=== PATIENT | male | born 1950 | race Caucasian/White ===

== ENCOUNTER → 2019-04-22 09:04 | Outpatient (CLI) | payer MEDICARE, SELFPAY ==
[2019-04-22 10:17] LABS: Add Manual Diff / Slide Review NO; Basophils Absolute Auto 0 /uL (0-100); Basophils Percent Auto 0.5 % (0-2); Eosinophils Absolute Auto 100 /uL (0-450); Eosinophils Percent Auto 0.9 % (2-4); Hemoglobin 13.9 g/dL (13.5-17.5); Lymphocytes Absolute Auto 2100 /uL (1100-4500); Lymphocytes Percent Auto 27.9 % (25-40); Mean Corpuscular Hemoglobin 27.9 PG (26-34); Monocytes Absolute Auto 700 /uL (0-900); Monocytes Percent Auto 9.9 % (3-14); Neutrophils Absolute Auto 4500 /uL (1500-7000); Neutrophils Percent Auto 60.8 % (50-75); Platelet Count 316 X10^3/uL (150-400); White Blood Cell Count 7.4 X10^3/uL (4.5-11.0)
[2019-04-22 10:29] LABS: Prothrombin Time 11.1 SECONDS (10.1-12.7)
[2019-04-22 10:35] LABS: Alanine Aminotransferase 14 IU/L (<50); Albumin 4.8 g/dL (3.5-5.0); Albumin Globulin Ratio 1.7 (1.0-2.8); Alkaline Phosphatase 55 U/L (38-126); Aspartate Aminotransferase 24 IU/L (17-59); BUN Creatinine Ratio 26.3 (6-22); Bilirubin Total 0.4 mg/dL (0.2-1.3); Blood Urea Nitrogen 21 mg/dL (9-20); Calcium 9.8 mg/dL (8.4-10.2); Carbon Dioxide 28 mmol/L (22-32); Chloride 101 mmol/L (98-107); Estimated Glomerular Filt Rate > 60.0 mL/min (>60); Globulin 2.9 g/dL (1.7-4.1); Glucose 94 mg/dL (80-110); HEMOLYSIS < 15 (0-50); Potassium 4.5 mmol/L (3.4-5.1); Sodium 140 mmol/L (137-145); Total Protein 7.7 g/dL (6.3-8.2)
[2019-04-25 17:00] LABS: Alpha Fetoprotein 4.6 ng/mL (< 6.1)
== END ==
PROVIDERS: PCP Family Medicine; Visit Provider Nurse Practitioner Family
DX: B18.2 Chronic viral hepatitis C (principal)
CPT/HCPCS: 36415; 80053; 82105; 85025; 85610

== ENCOUNTER → 2020-01-22 08:52 | Outpatient (CLI) | payer MEDICARE, SELFPAY ==
[2020-01-22 10:45] LABS: Hemoglobin A1C% w Est Avg Glu 5.5 % (4.0-6.0)
[2020-01-22 11:32] LABS: Alanine Aminotransferase 15 IU/L (<50); Albumin 4.2 g/dL (3.5-5.0); Albumin Globulin Ratio 1.4 (1.0-2.8); Alkaline Phosphatase 53 U/L (38-126); Aspartate Aminotransferase 25 IU/L (17-59); BUN Creatinine Ratio 16.3 (6-22); Bilirubin Total 0.2 mg/dL (0.2-1.3); Blood Urea Nitrogen 13 mg/dL (9-20); Calcium 9.4 mg/dL (8.4-10.2); Carbon Dioxide 28 mmol/L (22-32); Chloride 102 mmol/L (98-107); Cholesterol 218 mg/dL (140-199); Estimated Glomerular Filt Rate > 60.0 mL/min (>60); Glucose 89 mg/dL (80-110); HDL Cholesterol 80 mg/dL (40-60); HEMOLYSIS < 15 (0-50); LDL Cholesterol Calculated 100 mg/dL (<100); Potassium 4.6 mmol/L (3.4-5.1); Sodium 136 mmol/L (137-145); Total Protein 7.2 g/dL (6.3-8.2); Triglycerides 192 mg/dL (35-150)
[2020-01-22 11:42] LABS: Creatinine Urine Random 29.5 mg/dL
[2020-01-22 11:50] LABS: Microalbumin Urine Random < 0.6 mg/dL (0-1.6)
== END ==
PROVIDERS: PCP Family Medicine; Referring Provider Family Medicine; Visit Provider Family Medicine
DX: I10 Essential (primary) hypertension (principal)
CPT/HCPCS: 36415; 80053; 80061; 82043; 82570; 83036

== ENCOUNTER → 2020-02-11 09:54 | Outpatient (CLI) | payer MEDICARE, SELFPAY ==
--- NOTE | 2020-02-11 09:56 | DI.MRI.S_ITS ---
PROCEDURE: MR HEAD/BRAIN WO CON INDICATIONS: Short term memory loss TECHNIQUE: Non-contrast axial T1 spin echo, axial T2 fast spin echo, sagittal and axial FLAIR, coronal T2 fast spin echo, axial gradient echo, axial diffusion and ADC through the brain. COMPARISON: None. FINDINGS: Image quality: Excellent. CSF spaces: Ventricles appear symmetric in size and shape. Basal cisterns are patent. No extra-axial fluid collections. Brain: No intracranial bleeds or mass effects. There is cerebral volume loss for age, with no definite regional or lobar predilection to suggest a specific neuro degenerative diagnosis. There is advanced periventricular and deep white matter chronic small vessel ischemic change. Brainstem appears normal. Diffusion-weighted images show no acute ischemic insults. No chronic ischemic insults. Normal intravascular flow voids are present. Skull and face: Calvarial bone marrow is normal in signal. Orbits are normal. Sinuses: Sinuses and mastoids are clear. IMPRESSION: Global cerebral volume loss without definite regional or lobar predilection to suggest a specific neuro-degenerative diagnosis. Advanced chronic microvascular ischemic change. No acute intracranial abnormality. Dictated by: Kyle Newby M.D. on 02/11/2020 at 11:33 Approved by: Kyle Newby M.D. on 02/11/2020 at 11:34
== END ==
PROVIDERS: PCP Family Medicine; Referring Provider Family Medicine; Visit Provider Family Medicine
DX: I67.82 Cerebral ischemia (principal); R41.3 Other amnesia
CPT/HCPCS: 70551

== ENCOUNTER → 2020-03-04 08:14 | Outpatient (CLI) | payer MEDICARE, SELFPAY ==
--- NOTE | 2020-03-04 | DI.US.S_ITS ---
PROCEDURE: US ABDOMEN LIMITED INDICATIONS: CIRRHOSIS-HCC SURVEILLANCE TECHNIQUE: Real-time scanning was performed of the abdominal and retroperitoneal organs, with image documentation. COMPARISON: [facility], US, ABDOMEN COMPLETE, 02/17/2016, 9:41. FINDINGS: Liver: Liver is normal in size and homogeneous in echotexture. There is a 2.2 x 1.5 x 1.8 cm echogenic in the right hepatic lobe this measured 2.3 x 2.0 x 1.8 cm on the comparison ultrasound dated February 17, 2016. Gallbladder: The gallbladder wall measures 1.9 mm in diameter. 3 and 4 cm polyps are noted within the fundus. Biliary ducts: Intrahepatic bile ducts are non-dilated. Extrahepatic bile duct caliber measures 3.7 mm. Normal is 6-7 mm or less in diameter, or 10 mm or less post-cholecystectomy. Pancreas: There is fatty atrophy of the pancreas. Kidneys: There is an incidentally noted right lower pole renal cyst which measures 1.7 cm in diameter. IMPRESSION: 1. No increased hepatic echogenicity to suggest cirrhotic transformation or steatosis. 2. Stable hepatic hemangioma. 3. Gallbladder polyps measuring 3 and 4 mm in diameter. Dictated by: Rosemarie Webb M.D. on 03/04/2020 at 10:37 Approved by: Rosemarie Webb M.D. on 03/04/2020 at 10:43
[2020-03-04 09:36] LABS: Add Manual Diff / Slide Review NO; Basophils Absolute Auto 0 /uL (0-100); Basophils Percent Auto 0.4 % (0-2); Eosinophils Absolute Auto 200 /uL (0-450); Eosinophils Percent Auto 2.7 % (2-4); Hemoglobin 13.4 g/dL (13.5-17.5); Lymphocytes Absolute Auto 2700 /uL (1100-4500); Lymphocytes Percent Auto 32.8 % (25-40); Mean Corpuscular HGB Conc 32.7 % (30-36); Mean Corpuscular Hemoglobin 29.2 PG (26-34); Mean Corpuscular Volume 89.5 fL (80-100); Monocytes Absolute Auto 900 /uL (0-900); Monocytes Percent Auto 11.1 % (3-14); Neutrophils Absolute Auto 4400 /uL (1500-7000); Platelet Count 289 X10^3/uL (150-400); Red Blood Cell Count 4.58 X10^6/uL (4.5-5.9); Red Cell Distribution Width 14.1 % (11.6-14.8); White Blood Cell Count 8.3 X10^3/uL (4.5-11.0)
[2020-03-04 09:38] LABS: Prothrombin Time 11.2 SECONDS (10.1-12.7)
[2020-03-04 10:06] LABS: Alanine Aminotransferase 16 IU/L (<50); Albumin 4.1 g/dL (3.5-5.0); Albumin Globulin Ratio 1.4 (1.0-2.8); Alkaline Phosphatase 51 U/L (38-126); Aspartate Aminotransferase 29 IU/L (17-59); BUN Creatinine Ratio 13.5 (6-22); Bilirubin Total 0.5 mg/dL (0.2-1.3); Blood Urea Nitrogen 12 mg/dL (9-20); Calcium 9.6 mg/dL (8.4-10.2); Carbon Dioxide 30 mmol/L (22-32); Chloride 104 mmol/L (98-107); Estimated Glomerular Filt Rate > 60.0 mL/min (>60); Glucose 90 mg/dL (80-110); HEMOLYSIS < 15 (0-50); Potassium 4.5 mmol/L (3.4-5.1); Sodium 137 mmol/L (137-145); Total Protein 7.1 g/dL (6.3-8.2)
[2020-03-05 08:13] LABS: Alpha Fetoprotein 2.8 ng/mL (0.0-8.3)
== END ==
PROVIDERS: PCP Family Medicine; Referring Provider Family Medicine; Visit Provider Nurse Practitioner Family
DX: K74.60 Unspecified cirrhosis of liver (principal); B18.2 Chronic viral hepatitis C; K82.4 Cholesterolosis of gallbladder
CPT/HCPCS: 36415; 76705; 80053; 82105; 85025; 85610

== ENCOUNTER → 2020-12-24 11:03 | Outpatient (CLI) | payer MEDICARE, SELFPAY ==
--- NOTE | 2020-12-24 | DI.US.S_ITS ---
PROCEDURE: US ABDOMEN LIMITED INDICATIONS: CIRRHOSIS - RULE OUT HEPATIC CELLULAR CARCINOMA TECHNIQUE: Real-time focused scanning was performed of the abdomen, with image documentation. COMPARISON: [facility], US, ABDOMEN COMPLETE, 02/17/2016, 9:41. [facility], US, ABDOMEN COMPLETE, 09/13/2007, 9:39. [facility], [place], US ABDOMEN LIMITED, 03/04/2020, 8:36. FINDINGS: The liver demonstrates normal size. The liver demonstrates generalized mildly increased echogenicity. This decreases ultrasound sensitivity for detection of hepatic masses. However, within the right liver, there is a homogeneous hyperechoic focus with posterior enhancement that measures 2.1 x 1.7 x 1.4 cm, which previously measured 2.2 x 1.8 x 1.5 cm. No findings of gallstones or sludge are seen. The gallbladder wall is not thickened, measuring 3 mm or less. Multiple apparent gallbladder wall polyps are again seen, with the largest measuring up to 3.5 mm. No specific pericholecystic fluid is seen. The sonographic Kitchen sign is negative. There is no biliary dilatation, the common bile duct measures 5 mm. The pancreas is not well seen. Incidental note is made of a 2.1 cm simple cyst at the inferior aspect of the right kidney, which previously measured up to 1.7 cm. The spleen is within normal limits for size measuring 9.2 cm. IMPRESSION: An apparent liver hemangioma can be seen, which is not enlarged compared to the prior examination. No additional liver masses are seen by ultrasound. If it would be helpful for clinical management decision making, please consider a dedicated liver MRI (without and with contrast) for further evaluation (assuming that there is no contraindication). Dictated by: Som Meyers M.D. on 12/24/2020 at 11:25 Approved by: Som Meyers M.D. on 12/24/2020 at 11:29
[2020-12-24 12:53] LABS: Add Manual Diff / Slide Review NO; Basophils Absolute Auto 100 /uL (0-100); Basophils Percent Auto 0.7 % (0-2); Eosinophils Absolute Auto 100 /uL (0-450); Eosinophils Percent Auto 1.3 % (2-4); Hematocrit 44.7 % (41-53); Hemoglobin 14.4 g/dL (13.5-17.5); Lymphocytes Absolute Auto 2300 /uL (1100-4500); Lymphocytes Percent Auto 27.6 % (25-40); Mean Corpuscular HGB Conc 32.3 % (30-36); Mean Corpuscular Hemoglobin 27.2 PG (26-34); Mean Corpuscular Volume 84.2 fL (80-100); Monocytes Absolute Auto 700 /uL (0-900); Monocytes Percent Auto 8.7 % (3-14); Neutrophils Absolute Auto 5200 /uL (1500-7000); Neutrophils Percent Auto 61.7 % (50-75); Platelet Count 278 X10^3/uL (150-400); Prothrombin Time 11.4 SECONDS (10.1-12.7); Red Blood Cell Count 5.31 X10^6/uL (4.5-5.9); Red Cell Distribution Width 15.3 % (11.6-14.8); White Blood Cell Count 8.5 X10^3/uL (4.5-11.0)
[2020-12-24 13:15] LABS: Alanine Aminotransferase 17 IU/L (<50); Albumin 4.8 g/dL (3.5-5.0); Albumin Globulin Ratio 1.6 (1.0-2.8); Alkaline Phosphatase 50 U/L (38-126); Aspartate Aminotransferase 27 IU/L (17-59); BUN Creatinine Ratio 22.5 (6-22); Bilirubin Total 0.4 mg/dL (0.2-1.3); Blood Urea Nitrogen 18 mg/dL (9-20); Calcium 9.7 mg/dL (8.4-10.2); Carbon Dioxide 27 mmol/L (22-32); Chloride 105 mmol/L (98-107); Estimated Glomerular Filt Rate > 60.0 mL/min (>60); Glucose 108 mg/dL (80-110); HEMOLYSIS < 15 (0-50); Potassium 4.3 mmol/L (3.4-5.1); Sodium 140 mmol/L (137-145); Total Protein 7.8 g/dL (6.3-8.2)
[2020-12-25 03:36] LABS: Alpha Fetoprotein 3.7 ng/mL (0.0-8.3)
== END ==
PROVIDERS: PCP Family Medicine; Referring Provider Nurse Practitioner Family; Visit Provider Nurse Practitioner Family
DX: B18.2 Chronic viral hepatitis C (principal); K74.60 Unspecified cirrhosis of liver; N28.1 Cyst of kidney, acquired
CPT/HCPCS: 36415; 76705; 80053; 82105; 85025; 85610

== ENCOUNTER → 2021-02-01 09:36 | Outpatient (CLI) | payer MEDICARE, SELFPAY ==
[2021-02-01 12:39] LABS: COVID19 -Nasal RAPID Negative (Negative)
== END ==
PROVIDERS: PCP Family Medicine; Visit Provider Physician Assistant
DX: Z20.822 Contact with and (suspected) exposure to COVID-19 (principal); J02.9 Acute pharyngitis, unspecified; R05.9 Cough, unspecified
CPT/HCPCS: 87635

== ENCOUNTER → 2021-08-18 09:03 | Outpatient (CLI) | payer MEDICARE, SELFPAY ==
--- NOTE | 2021-08-18 | DI.US.S_ITS ---
PROCEDURE: US ABDOMEN LIMITED INDICATIONS: Liver cell carcinoma TECHNIQUE: Real-time focused scanning was performed of the abdomen, with image documentation. COMPARISON: [facility], [place], US ABDOMEN LIMITED, 03/04/2020, 8:36. [facility], [place], US ABDOMEN LIMITED, 12/24/2020, 11:28. FINDINGS: The liver demonstrates normal size. The liver demonstrates generalized mildly increased echogenicity. This decreases ultrasound sensitivity for detection of hepatic masses. Within the right lobe of the liver, there are 2 hyperechoic foci seen, which measure up to 8 mm and up to 21 mm. No shadowing can be seen. No abnormal vascularity. No findings of gallstones or sludge are seen. The gallbladder wall is not thickened, measuring 3 mm or less. Multiple gallbladder wall polyps can be seen, with the largest measuring 5-6 mm. No specific pericholecystic fluid is seen. The sonographic Kitchen sign is negative. There is no biliary dilatation, the common bile duct measures 4 mm. No significant pancreatic abnormality is seen on these images. A right kidney anechoic cyst is again seen that measures up to 2.6 cm. IMPRESSION: No suspicious liver lesions are seen. Two hyperechoic foci can be seen within the liver, which are attributed to hemangiomas. Incidental note is made of: Multiple gallbladder wall polyps Right renal cyst Dictated by: Som Meyers M.D. on 08/18/2021 at 11:52 Approved by: Som Meyers M.D. on 08/18/2021 at 11:55
[2021-08-18 10:28] LABS: Prothrombin Time 11.8 SECONDS (10.1-12.7)
[2021-08-18 10:32] LABS: Alanine Aminotransferase 15 IU/L (<50); Albumin 4.4 g/dL (3.5-5.0); Albumin Globulin Ratio 1.5 (1.0-2.8); Alkaline Phosphatase 52 U/L (38-126); Aspartate Aminotransferase 22 IU/L (17-59); BUN Creatinine Ratio 18.8 (6-22); Bilirubin Total 0.4 mg/dL (0.2-1.3); Blood Urea Nitrogen 16 mg/dL (9-20); Calcium 9.3 mg/dL (8.4-10.2); Carbon Dioxide 29 mmol/L (22-32); Chloride 105 mmol/L (98-107); Estimated Glomerular Filt Rate > 60 mL/min (>60); Glucose 99 mg/dL (80-110); HEMOLYSIS < 15 (0-50); Potassium 4.4 mmol/L (3.4-5.1); Sodium 142 mmol/L (137-145); Total Protein 7.4 g/dL (6.3-8.2)
[2021-08-18 10:36] LABS: Add Manual Diff / Slide Review NO; Basophils Absolute Auto 0 /uL (0-100); Basophils Percent Auto 0.5 % (0-2); Eosinophils Absolute Auto 100 /uL (0-450); Eosinophils Percent Auto 0.8 % (2-4); Hemoglobin 13.7 g/dL (13.5-17.5); Lymphocytes Absolute Auto 2100 /uL (1100-4500); Lymphocytes Percent Auto 24.5 % (25-40); Mean Corpuscular HGB Conc 32.6 % (30-36); Mean Corpuscular Hemoglobin 27.4 PG (26-34); Mean Corpuscular Volume 84.1 fL (80-100); Monocytes Absolute Auto 700 /uL (0-900); Monocytes Percent Auto 8.3 % (3-14); Neutrophils Absolute Auto 5600 /uL (1500-7000); Neutrophils Percent Auto 65.9 % (50-75); Platelet Count 262 X10^3/uL (150-400); Red Cell Distribution Width 14.9 % (11.6-14.8); White Blood Cell Count 8.5 X10^3/uL (4.5-11.0)
[2021-08-19 05:33] LABS: Alpha Fetoprotein 3.7 ng/mL (0.0-8.4)
== END ==
PROVIDERS: PCP Family Medicine; Referring Provider Nurse Practitioner Family; Visit Provider Nurse Practitioner Family
DX: C22.0 Liver cell carcinoma (principal); B18.2 Chronic viral hepatitis C; K82.4 Cholesterolosis of gallbladder; N28.1 Cyst of kidney, acquired
CPT/HCPCS: 36415; 76705; 80053; 82105; 85025; 85610

== ENCOUNTER → 2022-05-04 11:25 | Outpatient (CLI) | payer MEDICARE, SELFPAY ==
--- NOTE | 2022-05-04 11:30 | DI.US.S_ITS ---
PROCEDURE: US ABDOMEN LIMITED INDICATIONS: LIVER FIBROSIS/CIRRHOSIS/HEPATOCELLULAR CARCINOMA SCREENING TECHNIQUE: Real-time focused scanning was performed of the abdomen, with image documentation. COMPARISON: [facility], , US ABDOMEN LIMITED, 12/24/2020, 11:28. [facility], , US ABDOMEN LIMITED, 03/04/2020, 8:36. [facility], , US ABDOMEN LIMITED, 08/18/2021, 10:28. FINDINGS: The liver demonstrates normal size and overall normal echotexture. The previously seen hyperechoic focus that measured 8 mm is not seen on the current study. There is now seen a hyperechoic nonvascular homogeneous focus within the right posterior lobe of the liver measuring 12 x 8 x 2 cm, which previously measured 15 x 21 x 19 mm. The main portal vein demonstrates normal size and demonstrates normal appearing, hepatopetal flow. No varices can be seen at the liver hilum. No findings of gallstones or sludge are seen. The gallbladder wall is not thickened, measuring 3 mm or less. Multiple apparent gallbladder wall polyps are again seen. No specific pericholecystic fluid is seen. The sonographic Kitchen sign is negative. There is no biliary dilatation, the common bile duct measures 5 mm. The pancreas is not well seen. The spleen measures within normal limits at 9.5 cm. No splenic varices are seen. Within the right kidney, there is a 2.3 cm cortical cyst that is anechoic that previously measured up to 2.6 cm. IMPRESSION: Likely liver hemangioma again seen, measuring up to 2 cm. The previously seen 8 mm apparent liver hemangioma is not seen on the current study. Additional findings: Apparent gallbladder wall polyps Right renal cyst Dictated by: Som Meyers M.D. on 05/04/2022 at 12:36 Approved by: Som Meyers M.D. on 05/04/2022 at 12:38
[2022-05-04 13:39] LABS: Add Manual Diff / Slide Review NO; Basophils Absolute Auto 0 /uL (0-100); Basophils Percent Auto 0.4 % (0-2); Eosinophils Absolute Auto 100 /uL (0-450); Eosinophils Percent Auto 0.6 % (2-4); Hematocrit 43.2 % (41-53); Hemoglobin 13.9 g/dL (13.5-17.5); Lymphocytes Absolute Auto 2600 /uL (1100-4500); Lymphocytes Percent Auto 31.5 % (25-40); Mean Corpuscular HGB Conc 32.1 % (30-36); Mean Corpuscular Hemoglobin 27.1 PG (26-34); Mean Corpuscular Volume 84.5 fL (80-100); Monocytes Absolute Auto 700 /uL (0-900); Neutrophils Absolute Auto 4800 /uL (1500-7000); Neutrophils Percent Auto 58.5 % (50-75); Platelet Count 322 X10^3/uL (150-400); Red Blood Cell Count 5.11 X10^6/uL (4.5-5.9); Red Cell Distribution Width 15.1 % (11.6-14.8); White Blood Cell Count 8.2 X10^3/uL (4.5-11.0)
[2022-05-04 13:50] LABS: INR 1.1 (0.9-1.3); Prothrombin Time 12.4 SECONDS (10.1-12.7)
[2022-05-04 14:03] LABS: Alanine Aminotransferase 22 IU/L (<50); Alkaline Phosphatase 52 U/L (38-126); Aspartate Aminotransferase 30 IU/L (17-59); BUN Creatinine Ratio 21.7 (6-22); Bilirubin Total 0.7 mg/dL (0.2-1.3); Blood Urea Nitrogen 18 mg/dL (9-20); Calcium 9.5 mg/dL (8.4-10.2); Carbon Dioxide 28 mmol/L (22-32); Chloride 99 mmol/L (98-107); Estimated Glomerular Filt Rate > 60 mL/min (>60); Glucose 85 mg/dL (80-110); HEMOLYSIS < 15 (0-50); Potassium 4.5 mmol/L (3.4-5.1); Sodium 137 mmol/L (137-145); Total Protein 7.4 g/dL (6.3-8.2)
[2022-05-04 15:10] LABS: Folate 13.3 ng/mL (2.76-20.0); Vitamin B12 718 pg/mL (239-931)
[2022-05-06 16:39] LABS: Albumin 4.6 g/dL (3.5-5.0); Albumin Globulin Ratio 1.6 (1.0-2.8); Globulin 2.8 g/dL (1.7-4.1)
[2022-05-23 13:43] LABS: 1,25-Dihydroxy, Vitamin D-2 <10 pg/mL (.)
== END ==
PROVIDERS: PCP Family Medicine; Referring Provider Nurse Practitioner Family; Visit Provider Nurse Practitioner Family
DX: B18.2 Chronic viral hepatitis C (principal); K74.00 Hepatic fibrosis, unspecified; Z12.89 Encounter for screening for malignant neoplasm of other sites; N28.1 Cyst of kidney, acquired; E55.9 Vitamin D deficiency, unspecified; E53.8 Deficiency of other specified B group vitamins
CPT/HCPCS: 36415; 76705; 80053; 82105; 82607; 82652; 82746; 85025; 85610

== ENCOUNTER → 2022-05-31 07:23 | Outpatient (CLI) | payer MEDICARE, SELFPAY ==
[2022-05-31 09:22] LABS: Cholesterol 151 mg/dL (140-199); HDL Cholesterol 57 mg/dL (40-60); LDL Cholesterol Calculated 77 mg/dL (<100); Triglycerides 84 mg/dL (35-150)
[2022-05-31 09:53] LABS: Prostate Specific Antigen Scrn 0.864 ng/mL (0.1-4.0)
== END ==
PROVIDERS: PCP Family Medicine; Referring Provider Family Medicine; Visit Provider Family Medicine
DX: E78.2 Mixed hyperlipidemia (principal); Z12.5 Encounter for screening for malignant neoplasm of prostate; R35.0 Frequency of micturition
CPT/HCPCS: 36415; 80061; G0103

== ENCOUNTER 2022-10-27 16:08 | Observation (INO) | payer MEDICARE, SELFPAY ==
[2022-10-27] VITALS (19 sets, daily range): BP systolic 123–192; BP diastolic 74–132; PULSE 62–81; RESP 12–32; TEMP 36.2–36.6; O2SAT 97–100; BMI 22.9
--- NOTE | 2022-10-27 16:24 | DI.RAD.S_ITS ---
PROCEDURE: XR CHEST 1V INDICATIONS: chest pain TECHNIQUE: One view of the chest was acquired. COMPARISON: None. FINDINGS: Surgical changes and devices: None. Lungs and pleura: Nodular densities in the lower lung zones are most likely nipple shadows. Lungs are clear. No pleural effusions or pneumothorax. Mediastinum: Mediastinal contours appear normal. Heart size is normal. Bones and chest wall: No suspicious bony lesions. Overlying soft tissues appear unremarkable. IMPRESSION: No acute cardiopulmonary disease. Dictated by: Zaida Roth M.D. on 10/27/2022 at 17:25 Approved by: Zaida Roth M.D. on 10/27/2022 at 17:27
[2022-10-27 16:49] LABS: Add Manual Diff / Slide Review NO; Basophils Absolute Auto 100 /uL (0-100); Basophils Percent Auto 0.8 % (0-2); Eosinophils Absolute Auto 200 /uL (0-450); Eosinophils Percent Auto 2.4 % (2-4); Hematocrit 42.2 % (41-53); Lymphocytes Absolute Auto 3100 /uL (1100-4500); Mean Corpuscular HGB Conc 33.2 % (30-36); Mean Corpuscular Hemoglobin 27.6 PG (26-34); Mean Corpuscular Volume 83.2 fL (80-100); Monocytes Absolute Auto 900 /uL (0-900); Neutrophils Absolute Auto 5500 /uL (1500-7000); Neutrophils Percent Auto 55.8 % (50-75); Platelet Count 272 X10^3/uL (150-400); Red Blood Cell Count 5.07 X10^6/uL (4.5-5.9); Red Cell Distribution Width 14.5 % (11.6-14.8); White Blood Cell Count 9.8 X10^3/uL (4.5-11.0)
[2022-10-27 16:55] LABS: Prothrombin Time 11.5 SECONDS (10.1-12.7)
[2022-10-27 16:58] LABS: PTT Partial Thromboplastin Tim 32 SECONDS (26-36)
[2022-10-27 17:00] LABS: Alanine Aminotransferase 22 IU/L (<50); Albumin 4.6 g/dL (3.5-5.0); Albumin Globulin Ratio 1.3 (1.0-2.8); Alkaline Phosphatase 58 U/L (38-126); Aspartate Aminotransferase 27 IU/L (17-59); BUN Creatinine Ratio 24.1 (6-22); Bilirubin Total 0.5 mg/dL (0.2-1.3); Blood Urea Nitrogen 19 mg/dL (9-20); Calcium 9.4 mg/dL (8.4-10.2); Carbon Dioxide 28 mmol/L (22-32); Chloride 103 mmol/L (98-107); Creatine Kinase 167 U/L (55-170); Estimated Glomerular Filt Rate > 60 mL/min (>60); Globulin 3.5 g/dL (1.7-4.1); Glucose 92 mg/dL (80-110); HEMOLYSIS 23 (0-50); Lipase 302 U/L (23-300); Magnesium 1.9 mg/dL (1.6-2.3); Potassium 4.2 mmol/L (3.4-5.1); Sodium 138 mmol/L (137-145); Total Protein 8.1 g/dL (6.3-8.2)
[2022-10-27 17:11] LABS: Troponin I < 0.012 ng/mL (0.01-0.034)
--- NOTE | 2022-10-27 19:27 | ED.CHESTPAIN ---
HPI - Chest Pain General Chief Complaint: Chest Pain Stated Complaint: chest pain, now resolved Time Seen by Provider: 10/27/22 18:20 Source: patient Mode of arrival: Ambulatory Limitations: no limitations History of Present Illness HPI narrative: Patient brought here by daughter, she is internal medicine physician, for episode 3:00 a.m. this afternoon for exertional dyspnea and chest pain. Lasted about 30 minutes. This has resolved. This occurred while he was [place] No near drowning. Patient has not had any recent chest pain or dyspnea. There is family history of coronary disease including his father. Patient has not had a stress test in many years over 10 years. Patient does have history of hypertension hyperlipidemia. Patient denies any chest pain at this time. Family did give him aspirin prior to arrival. Patient has known left bundle-branch block according to his daughter Related Data Home Medications Medication Instructions Recorded Confirmed aspirin 81 mg tablet,delayed 81 mg PO DAILY 01/28/21 10/27/22 release (Adult Aspirin Regimen) memantine 5 mg tablet 5 mg PO QPM 01/28/21 10/27/22 Previous Rx's Medication Instructions Recorded atorvastatin 20 mg tablet See Rx Instructions .Route 05/10/22 .COMPLEX #90 tabs lisinopril 10 See Rx Instructions .Route 05/10/22 mg-hydrochlorothiazide 12.5 mg .COMPLEX #90 tabs tablet Allergies Allergy/AdvReac Type Severity Reaction Status Date / Time codeine Allergy Unknown Verified 10/27/22 16:24 Review of Systems Review of Systems Narrative: GENERAL: negative chills, fatigue, malaise, fever, sweats. HEENT: negative sinus pain, ear pain, sore throat RESPIRATORY: Positive dyspnea, negative cough CARDIOVASCULAR: Positive chest pain, negative palpitations GASTROINTESTINAL: negative nausea, vomiting, abdominal pain : negative dysuria, frequency, hematuria MUSCULOSKELETAL: negative muscle or bony pain SKIN: negative rash, skin lesions NEUROLOGIC: negative weakness, numbness ROS Unobtainable: All systems reviewed & are unremarkable except as noted in HPI and below Patient History Medical History Cerebral microvascular disease Colon polyps (~2014) Headache (~2019) Hearing loss Hepatitis C (~1970) Hyperlipidemia Rib fractures Short-term memory loss Skin rash Surgical History Anesthesia History of bilateral knee arthroplasty History of colon surgery (~1961) History of knee replacement (~2005) Family History Father Leukemia History of heart disease Hypertension Mother Hypertension Stroke Dementia Brother Smoker Embolism Brother Cancer Brother Accident Grandmother Cancer Grandfather No problems noted. Grandmother Tuberculosis Social History household members: spouse Smoking Status: Never smoker Smoking Status: Never smoker Substance Use Type: does not use Exam Narrative Exam Narrative: GENERAL: in no distress, not toxic not dyspneic HEAD: Normocephalic. EYES: Pupils equal round ENT: Mucous membranes moist. NECK: Trachea midline. CARDIOVASCULAR: Regular rate and rhythm without murmurs RESPIRATORY: Clear to auscultation. Breath sounds equal bilaterally. No wheezes, rales, or rhonchi. GASTROINTESTINAL: Abdomen soft, non-tender EXTREMITIES: No gross deformities. BACK: No flank tenderness. NEURO: AOx4. SKIN: Warm and dry PSYCH: Not anxious, is cooperative Initial Vital Signs Initial Vital Signs: Vital Signs Temperature 97.8 F 10/27/22 16:18 Pulse Rate 79 10/27/22 16:18 Respiratory Rate 18 10/27/22 16:18 Blood Pressure 179/93 H 10/27/22 16:18 Pulse Oximetry 98 10/27/22 16:18 Oxygen Delivery Method Room Air 10/27/22 16:18 Course Orders Ordered: ED Orders 10/27/22 19:49 Lipid Panel Urgent NT-proBNP (BNP-Adult 18+) Urgent Troponin & CK Cardiac Panel Stat 10/27/22 21:31 Exercise treadmill NON NUC Urgent 10/27/22 21:32 EC echo doppler complete Urgent Education, smoking cessation ONGOING 10/27/22 21:35 Consult to Dietitian, Adult Routine 10/27/22 21:36 Consult to Discharge Planning Routine Consult to Occupational Therapy Evaluate & Treat Consult to Physical Therapy Evaluate & Treat 10/28/22 05:00 Troponin I Routine Acetaminophen (Acetaminophen 325 Mg Tablet) 650 mg PO Q6H PRN PRN Reason: Fever/Mild Pain (1-3) Aspirin (Aspirin Ec 325 Mg Tablet) 325 mg PO DAILY [facility] Atorvastatin Calcium (Atorvastatin 20 Mg Tablet) 20 mg PO BEDTIME [facility] Enoxaparin Sodium (Enoxaparin 40 Mg/0.4 Ml Syringe) 40 mg SUBCUT DAILY [facility] Lisinopril (Lisinopril 10 Mg Tablet) 10 mg PO DAILY [facility] Memantine (Memantine Hcl 5 Mg Tablet) 5 mg PO QPM [facility] Morphine Sulfate (Morphine 2 Mg/Ml Inj) 2 mg IV Q5MIN PRN PRN Reason: Chest Pain Naloxone HCl (Naloxone 0.4 Mg/Ml Vial) 0.2 mg IV Q2MIN PRN PRN Reason: Opiate Reversal Nitroglycerin (Nitroglycerin 0.4 Mg Sl Tab) 0.4 mg SL [id number] PRN PRN Reason: Chest Pain Ondansetron HCl (Ondansetron 4 Mg/2 Ml Inj) 4 mg IV Q8HR PRN PRN Reason: Nausea And Vomiting Sennosides (Sennosides 8.6 Mg Tablet) 17.2 mg PO BEDTIME [facility] Discontinued Medications Aspirin (Aspirin 81 Mg Chew Tab) 324 mg PO NOW ONE Stop: 10/27/22 16:25 Last Admin: 10/27/22 16:36 Dose: Not Given Documented By: SHAUNA Hydrochlorothiazide (Hydrochlorothiazide 25 Mg Tablet) 12.5 mg PO NOW ONE Stop: 10/27/22 19:13 Last Admin: 10/27/22 20:02 Dose: 12.5 mg Documented By: NAYE Lisinopril (Lisinopril 10 Mg Tablet) 10 mg PO NOW ONE Stop: 10/27/22 19:13 Last Admin: 10/27/22 20:02 Dose: 10 mg Documented By: NAYE Vital Signs Vital signs: Vital Signs - 8 hr 10/27/22 20:02 10/27/22 19:30 10/27/22 19:30 Pulse Rate 77 66 Respiratory Rate 22 Blood Pressure 158/101 H 160/95 H Pulse Oximetry 99 Oxygen Delivery Method Room Air 10/27/22 19:45 10/27/22 19:45 10/27/22 20:00 Pulse Rate 64 Respiratory Rate 20 Blood Pressure 159/100 H 158/101 H Pulse Oximetry 99 Oxygen Delivery Method Room Air 10/27/22 20:00 10/27/22 20:09 10/27/22 20:09 Pulse Rate 65 70 Respiratory Rate 16 Blood Pressure 192/97 H Pulse Oximetry 98 98 Oxygen Delivery Method Room Air Room Air 10/27/22 20:15 10/27/22 20:16 10/27/22 20:16 Pulse Rate 65 75 Respiratory Rate 22 22 Blood Pressure 169/92 H Pulse Oximetry 99 99 Oxygen Delivery Method Room Air Room Air 10/27/22 20:30 10/27/22 20:30 10/27/22 20:45 Pulse Rate 66 Respiratory Rate 14 Blood Pressure 161/91 H 140/82 Pulse Oximetry 99 Oxygen Delivery Method 10/27/22 20:45 10/27/22 21:00 10/27/22 21:00 Pulse Rate 62 70 Respiratory Rate 12 18 Blood Pressure 130/74 Pulse Oximetry 97 97 Oxygen Delivery Method Room Air Room Air MDM - Chest Pain Lab Data 10/27/22 16:40 10/27/22 16:40 Labs: Lab Results 10/27/22 10/27/22 10/27/22 Range/Units 16:40 16:40 16:40 WBC 9.8 (4.5-11.0) X10^3/uL RBC 5.07 (4.5-5.9) X10^6/uL Hgb 14.0 (13.5-17.5) g/dL Hct 42.2 (41-53) % MCV 83.2 (80-100) fL MCH 27.6 (26-34) PG MCHC 33.2 (30-36) % RDW 14.5 (11.6-14.8) % Plt Count 272 (150-400) X10^3/uL Neut % (Auto) 55.8 (50-75) % Lymph % (Auto) 32.0 (25-40) % Barry % (Auto) 9.0 (3-14) % Eos % (Auto) 2.4 (2-4) % Baso % (Auto) 0.8 (0-2) % Neut # (Auto) 5500 (9744-0644) /uL Lymph # (Auto) 3100 (4733-4340) /uL Barry # (Auto) 900 (0-900) /uL Eos # (Auto) 200 (0-450) /uL Baso # (Auto) 100 (0-100) /uL PT 11.5 (10.1-12.7) SECONDS INR 1.0 (0.9-1.3) APTT 32 (26-36) SECONDS Sodium 138 (137-145) mmol/L Potassium 4.2 (3.4-5.1) mmol/L Chloride 103 (98-107) mmol/L Carbon Dioxide 28 (22-32) mmol/L BUN 19 (9-20) mg/dL Creatinine 0.79 (0.66-1.25) mg/dL Estimated GFR > 60 (>60) mL/min BUN/Creatinine Ratio 24.1 H (6-22) Glucose 92 (80-110) mg/dL Calcium 9.4 (8.4-10.2) mg/dL Magnesium 1.9 (1.6-2.3) mg/dL Total Bilirubin 0.5 (0.2-1.3) mg/dL AST 27 (17-59) IU/L ALT 22 (<50) IU/L Alkaline Phosphatase 58 (38-126) U/L Total Creatine Kinase 167 (55-170) U/L Troponin I < 0.012 (0.01-0.034) ng/mL NT-Pro-B Natriuret Pep (<125) pg/mL Total Protein 8.1 (6.3-8.2) g/dL Albumin 4.6 (3.5-5.0) g/dL Globulin 3.5 (1.7-4.1) g/dL Albumin/Globulin Ratio 1.3 (1.0-2.8) Triglycerides (35-150) mg/dL Cholesterol (140-199) mg/dL LDL Cholesterol, Calc (<100) mg/dL HDL Cholesterol (40-60) mg/dL Lipase 302 H (23-300) U/L 10/27/22 10/27/22 Range/Units 19:49 19:49 WBC (4.5-11.0) X10^3/uL RBC (4.5-5.9) X10^6/uL Hgb (13.5-17.5) g/dL Hct (41-53) % MCV (80-100) fL MCH (26-34) PG MCHC (30-36) % RDW (11.6-14.8) % Plt Count (150-400) X10^3/uL Neut % (Auto) (50-75) % Lymph % (Auto) (25-40) % Barry % (Auto) (3-14) % Eos % (Auto) (2-4) % Baso % (Auto) (0-2) % Neut # (Auto) (8746-1878) /uL Lymph # (Auto) (1415-9758) /uL Barry # (Auto) (0-900) /uL Eos # (Auto) (0-450) /uL Baso # (Auto) (0-100) /uL PT (10.1-12.7) SECONDS INR (0.9-1.3) APTT (26-36) SECONDS Sodium (137-145) mmol/L Potassium (3.4-5.1) mmol/L Chloride (98-107) mmol/L Carbon Dioxide (22-32) mmol/L BUN (9-20) mg/dL Creatinine (0.66-1.25) mg/dL Estimated GFR (>60) mL/min BUN/Creatinine Ratio (6-22) Glucose (80-110) mg/dL Calcium (8.4-10.2) mg/dL Magnesium (1.6-2.3) mg/dL Total Bilirubin (0.2-1.3) mg/dL AST (17-59) IU/L ALT (<50) IU/L Alkaline Phosphatase (38-126) U/L Total Creatine Kinase 156 (55-170) U/L Troponin I 0.018 (0.01-0.034) ng/mL NT-Pro-B Natriuret Pep 184 H (<125) pg/mL Total Protein (6.3-8.2) g/dL Albumin (3.5-5.0) g/dL Globulin (1.7-4.1) g/dL Albumin/Globulin Ratio (1.0-2.8) Triglycerides 52 (35-150) mg/dL Cholesterol 152 (140-199) mg/dL LDL Cholesterol, Calc 91 (<100) mg/dL HDL Cholesterol 51 (40-60) mg/dL Lipase (23-300) U/L Imaging Data Chest x-ray: Radiologist's Impression: [address] [address] XRay Report Signed Patient: Godfrey Ferrell MR#: [id number] : 1950 Acct:[id number] Age/Sex: 72 / M Date of Service: 10/27/22 Loc: ED Accession Number: [id number] ?? Procedure: XR chest 1V Ordering Provider: Tommie Purcell MD PROCEDURE:? XR CHEST 1V ? INDICATIONS:? chest pain ? TECHNIQUE:? One view of the chest was acquired.? ? COMPARISON:? None. ? FINDINGS:? ? Surgical changes and devices:? None.? ? Lungs and pleura:? Nodular densities in the lower lung zones are most likely nipple shadows.? Lungs are clear.? No pleural effusions or pneumothorax.? ? Mediastinum:? Mediastinal contours appear normal.? Heart size is normal.? ? Bones and chest wall:? No suspicious bony lesions.? Overlying soft tissues appear unremarkable.? ? IMPRESSION:? No acute cardiopulmonary disease. ? ? Dictated by: Zaida Roth M.D. on 10/27/2022 at 17:25 ? ? Approved by: Zaida Roth M.D. on 10/27/2022 at 17:27 ? [facility] Narrative Medical decision making narrative: Patient brought here by daughter, she is internal medicine physician, for episode 3:00 a.m. this afternoon for exertional dyspnea and chest pain. Lasted about 30 minutes. This has resolved. This occurred while [place] No near drowning. Patient has not had any recent chest pain or dyspnea. There is family history of coronary disease including his father. Patient has not had a stress test in many years over 10 years. Patient does have history of hypertension hyperlipidemia. Patient denies any chest pain at this time. Family did give him aspirin prior to arrival. Daughter states he has a known left bundle-branch block After history and exam CBC CMP troponin EKG chest x-ray [facility] CC: Chest pain Complicating co-morbidities: High blood pressure hypercholesterolemia Data collected from: Patient and daughter and Medical records reviewed: No recent visit for this complaint Differential considered: Includes but not limited to STEMI non-STEMI stable angina unstable angina acute coronary syndrome Exam documented above, pertinent findings include: Nontender chest Lab Test results independently reviewed as above. Pertinent findings: WBC 9.8 hemoglobin 14.0 INR 1.0 sodium 138 potassium 4.2 GFR greater than 60 troponin less than 0.012, repeat troponin 0.018 Independently reviewed EKG EKG sinus rhythm rate [address] elevation or depression. There is left bundle-branch block Imaging studies independently reviewed: Chest x-ray no acute finding Consultations: 9:30 p.m.. Spoke with marquis Stuartist, she will admit patient Treatments: None required at this time. No chest pain. Patient already had aspirin. Re-evaluations: Reviewed examined results with patient family. They do agree for admission. Currently chest pain-free Discussion: Appropriate for admission for balance or workup for chest pain including stress test and echocardiogram. Reviewed with patient and family they do agree for admission. Reviewed with hospitalist agrees for admit. Diagnosis: Chest pain Discharge Plan Departure Patient Disposition: Admitted as Observation Clinical Impression: Chest pain Admit Date/Time: 10/27/22 21:58 Admit Provider: Sade Roach
[2022-10-27] MEDS: lisinopriL 10 MG TABLET PO (20:02)
[2022-10-27] MEDS: hydroCHLOROthiazide 25 MG TABLET 12.5 MG PO (20:02)
[2022-10-27 20:30] LABS: Creatine Kinase 156 U/L (55-170)
[2022-10-27 20:43] LABS: Troponin I 0.018 ng/mL (0.01-0.034)
--- NOTE | 2022-10-27 21:37 | P.HP_ITS ---
History of Present Illness History of Present Illness Date Patient Seen: 10/27/22 Time Patient Seen: 21:37 Chief complaint: chest pain, now resolved Narrative: Godfrey Ferrell is a 72-year-old male with a history of HLD, HTN, mild pleasantly dementia, who presented to the ED after experiencing a sodium and episode of exertional chest pain and dyspnea while swimming in a [place]. Symptoms had resolved by the time the patient presented to the ED. Has no cardiac h istory or respiratory history, is at bedside to provide majority of medical history due to patient's dementia. On admit patient denies chest pain, shortness in breath, headache, changes in vision, difficulty swallowing, speech impairment, weakness, numbness, tingling, difficulty with ambulation, recent falls, head injury, LOC, fever, body aches, chills, cough, recent exposure to illness, abdominal pain, nausea, vomiting, urinary incontinence/retention, dysuria, frequency, urgency, hematuria, bowel changes, constipation, incontinence, melena, rashes, recent changes to medication, illness, injury, or trauma. Patient's vitals and labs are reassuring at the time of admit temp 97.1?, 123/8 1, 71, 18, 98% on room air. Patient's CBC and CMP are normal, potassium 4.2, Mag 1.9, initial troponin negative, repeat-0.018, chest x-ray is negative, EKG sinus rhythm with a rate of [address] or T-wave changes left bundle-branch block chronic for patient. Patient admitted for chest pain, risk stratification [facility] Medical History Cerebral microvascular disease Colon polyps (~2014) Headache (~2019) Hearing loss Hepatitis C (~1970) Hyperlipidemia Rib fractures Short-term memory loss Skin rash Surgical History Anesthesia History of bilateral knee arthroplasty History of colon surgery (~1960) History of knee replacement (~2005) Family History Father Leukemia History of heart disease Hypertension Mother Hypertension Stroke Dementia Brother Smoker Embolism Brother Cancer Brother Accident Grandmother Cancer Grandfather No problems noted. Grandmother Tuberculosis Social History household members: spouse Smoking Status: Never smoker Meds Home Medications and Allergies Home Medications Medication Instructions Recorded Confirmed Type aspirin 81 mg tablet,delayed 81 mg PO DAILY 01/28/21 10/27/22 History release (Adult Aspirin Regimen) memantine 5 mg tablet 5 mg PO QPM 01/28/21 10/27/22 History atorvastatin 20 mg tablet See Rx Instructions .Route 05/10/22 10/27/22 Rx .COMPLEX #90 tabs lisinopril 10 See Rx Instructions .Route 05/10/22 10/27/22 Rx mg-hydrochlorothiazide 12.5 mg .COMPLEX #90 tabs tablet Allergies Allergy/AdvReac Type Severity Reaction Status Date / Time codeine Allergy Unknown Verified 10/27/22 16:24 Review of Systems Review of Systems Narrative: All 12 point systems reviewed with the patient and are negative except otherwise documented.-ROS and HPI provided predominantly by patient's at bedside. Exam Vital Signs (past 8 hours): - 10/27/22 16:18 10/27/22 18:18 10/27/22 18:18 Temperature 97.8 F Pulse Rate 79 62 Respiratory Rate 18 20 Blood Pressure 179/93 H 183/109 H Pulse Oximetry 98 100 Oxygen Delivery Method Room Air 10/27/22 18:30 10/27/22 18:30 10/27/22 18:45 Temperature Pulse Rate 62 68 Respiratory Rate 20 Blood Pressure 163/98 H Pulse Oximetry 100 99 Oxygen Delivery Method 10/27/22 19:04 10/27/22 19:05 10/27/22 19:05 Temperature Pulse Rate 69 68 Respiratory Rate 27 H Blood Pressure 185/88 H Pulse Oximetry 100 99 Oxygen Delivery Method 10/27/22 19:08 10/27/22 19:08 10/27/22 19:15 Temperature Pulse Rate 81 Respiratory Rate 32 H Blood Pressure 185/132 H 164/91 H Pulse Oximetry 97 Oxygen Delivery Method 10/27/22 19:15 10/27/22 20:02 10/27/22 19:30 Temperature Pulse Rate 67 77 Respiratory Rate 20 Blood Pressure 158/101 H 160/95 H Pulse Oximetry 99 Oxygen Delivery Method 10/27/22 19:30 10/27/22 19:45 07/13/23 19:45 Temperature Pulse Rate 66 64 Respiratory Rate 22 20 Blood Pressure 159/100 H Pulse Oximetry 99 99 Oxygen Delivery Method Room Air Room Air 10/27/22 20:00 10/27/22 20:00 10/27/22 20:09 Temperature Pulse Rate 65 Respiratory Rate 16 Blood Pressure 158/101 H 192/97 H Pulse Oximetry 98 Oxygen Delivery Method Room Air 10/27/22 20:09 10/27/22 20:15 10/27/22 20:16 Temperature Pulse Rate 70 65 Respiratory Rate 22 Blood Pressure 169/92 H Pulse Oximetry 98 99 Oxygen Delivery Method Room Air Room Air 10/27/22 20:16 10/27/22 20:30 10/27/22 20:30 Temperature Pulse Rate 75 66 Respiratory Rate 22 14 Blood Pressure 161/91 H Pulse Oximetry 99 99 Oxygen Delivery Method Room Air 10/27/22 20:45 10/27/22 20:45 10/27/22 21:00 Temperature Pulse Rate 62 Respiratory Rate 12 Blood Pressure 140/82 130/74 Pulse Oximetry 97 Oxygen Delivery Method Room Air 10/27/22 21:00 Temperature Pulse Rate 70 Respiratory Rate 18 Blood Pressure Pulse Oximetry 97 Oxygen Delivery Method Room Air Oxygen Delivery Method Room Air Narrative Exam Narrative: General: Patient is pleasantly demented very fit 72-year-old male a well- developed, well-nourished in no distress at this time. HEENT: Normocephalic, atraumatic, extraocular muscles intact, oral pharynx is clear and mucous membranes are moist. Neck is supple and symmetric, trachea is midline, no adenopathy, no thyroid enlargement, nontender, no masses palpated. Negative for JVD Chest: Normal AP diameter and contour without kyphoscoliosis, Equal chest rise without nasal flaring, retractions, tachypneic or labored breathing. Lungs: Auscultation of all lung cobb are clear without adventitious sounds, wheezes, rhonchi, or rales. Cardio: regular rate and rhythm without murmur, rubs, or gallops, no carotid bruit, no cardiac pulsations present. Abdomen: Soft nontender, negative for organomegaly, or masses. Bowel sounds are present in all 4 quadrants without guarding or rebound, no CVA tenderness. Musculoskeletal: Muscle strength and tone are equal, no deformity, crepitus, effusions, cyanosis, clubbing or edema present. Full range of motion intact radial and pedal pulses are normal. Skin: Warm dry and intact without rashes, ulcerations or petechiae. Neuro: Alert and orientated x3, mildly demented, poor historian moves all extremities, sensation to touch intact, no gross deficits noted of cranial nerves. Psych: Patient has a well-kept appearance, appropriate affect, mental status attitude are appropriate. Objective Labs 10/27/22 16:40 10/27/22 16:40 Labs: Laboratory Results - last 24 hr 10/27/22 10/27/22 10/27/22 16:40 16:40 16:40 WBC 9.8 RBC 5.07 Hgb 14.0 Hct 42.2 MCV 83.2 MCH 27.6 MCHC 33.2 RDW 14.5 Plt Count 272 Neut % (Auto) 55.8 Lymph % (Auto) 32.0 [place] % (Auto) 9.0 Eos % (Auto) 2.4 Baso % (Auto) 0.8 Neut # (Auto) 5500 Lymph # (Auto) 3100 [place] # (Auto) 900 Eos # (Auto) 200 Baso # (Auto) 100 PT 11.5 INR 1.0 APTT 32 Sodium 138 Potassium 4.2 Chloride 103 Carbon Dioxide 28 BUN 19 Creatinine 0.79 Estimated GFR > 60 BUN/Creatinine Ratio 24.1 H Glucose 92 Calcium 9.4 Magnesium 1.9 Total Bilirubin 0.5 AST 27 ALT 22 Alkaline Phosphatase 58 Total Creatine Kinase 167 Troponin I < 0.012 Total Protein 8.1 Albumin 4.6 Globulin 3.5 Albumin/Globulin Ratio 1.3 Lipase 302 H 10/27/22 19:49 WBC RBC Hgb Hct MCV MCH MCHC RDW Plt Count Neut % (Auto) Lymph % (Auto) [place] % (Auto) Eos % (Auto) Baso % (Auto) Neut # (Auto) Lymph # (Auto) [place] # (Auto) Eos # (Auto) Baso # (Auto) PT INR APTT Sodium Potassium Chloride Carbon Dioxide BUN Creatinine Estimated GFR BUN/Creatinine Ratio Glucose Calcium Magnesium Total Bilirubin AST ALT Alkaline Phosphatase Total Creatine Kinase 156 Troponin I 0.018 Total Protein Albumin Globulin Albumin/Globulin Ratio Lipase Assessment & Plan Assessment & Plan narrative: Godfrey Ferrell is a 72-year-old male with a history of HLD, HTN, mild pleasantly dementia, who presented to the ED after experiencing a sodium and episode of exertional chest pain and dyspnea while swimming in a [place]. Admit for chest pain rule out risk stratification. Chest pain with exertional dyspnea, acute, present on admission * Symptoms resolved, stable * Patient admitted under chest pain protocol * ASA, telemetry overnight, statin * Echo stress test ordered tomorrow Hypertension, chronic, present on admission * Continue lisinopril/HCTZ Hyperlipidemia, mixed, chronic, present on admission * Continue Lipitor Dementia, mild, chronic, present on admission * Continue memantine Malnutrition, mild, acute on chronic, present on admission * As evidence by BMI 23 * patient's malnutrition places them at high risk for medical and surgical complications in relation to acute illness/chronic illness. This increases the difficulty in complexity of medical management and increases the chances poor outcomes such as mortality and morbidity as well as impaired wound healing, and immune suppression. * dietary consult ordered to evaluate and implement steps to improve caloric intake and nutrition. Code status: DNR-per patient and Surrogate decision maker: Spouse DVT/VTE prophylaxis: Lovenox and SCDs Disposition: Patient admitted for overnight observation chest pain rule out stratification, expected length of stay not to exceed 2 midnights. I have utilized all available immediate resources to obtain, update, or review the patient's current medications. I confirmed that the patient's advanced care plan is present, Code status is documented and/or surrogate decision maker is listed in the patient's medical record. I have personally reviewed patient's chart notes from PCP, specialists, diagnostic imaging, and laboratory results.
[2022-10-27 21:51] LABS: Cholesterol 152 mg/dL (140-199); HDL Cholesterol 51 mg/dL (40-60); LDL Cholesterol Calculated 91 mg/dL (<100); Triglycerides 52 mg/dL (35-150)
[2022-10-27 22:00] LABS: NT-proBNP (BNP-Adult 18+) 184 pg/mL (<125)
[2022-10-28 02:19] VITALS: BP 107/65; PULSE 77; RESP 18; TEMP 36.5; O2SAT 99
[2022-10-28 05:39] LABS: Troponin I 0.016 ng/mL (0.01-0.034)
[2022-10-28 07:00] VITALS: BP 140/90; PULSE 62; RESP 17; TEMP 36.3; O2SAT 98
[2022-10-28 08:25] VITALS: BP 140/90; PULSE 62
[2022-10-28] MEDS: ENOXAPARIN 40 MG/0.4 ML SYRINGE SUBCUT (08:25)
[2022-10-28] MEDS: lisinopriL 10 MG TABLET PO (08:25)
[2022-10-28] MEDS: ASPIRIN EC 325 MG TABLET PO (08:25)
--- NOTE | 2022-10-28 08:52 | CM.DANOTE ---
Chart reviewed. Met with patient to introduce case management team and initiate assessment. Patient agrees to assessment. Patient is a 72 year old who confirms that sudden shortness of breath occurred while swimming with family at [employer]. thinks he had a stress test more than 10 years ago. NPO for stress test today. Known vascular dementia with confirmation by . Many questions have responses with smile, laughter and deferred answers. PCP: Jaciel Pope Payer: BECCA TURNER DME: None Plan: Stress test DCP: Return home with supportive /family Discharge Planning/Care Management CM Discharge Assessment Start: 10/28/22 08:50 Freq: Status: Active Protocol: Document 10/28/22 08:50 BQ (Rec: 10/28/22 08:52 BQ [id number]) Discharge Planning Assessment Assigned Entry Tech Roxana López RN CM DPOA/Assigned Designee Name at bedside Advance Directives? No History Provided By Patient,Family Member Has Patient been admitted in last 30 No days? Prior Living Arrangements House Household Members spouse Type of transporation used prior to Drives own vehicle admit Independent with ADL's Yes Is patient alert and oriented? Yes: Oriented to person, place , circumstance. Fine detals, defers with laughter Caregiver for Another No Referrals Initiated None needed Whiteboard Updated in Patient Room with Yes name and ext. # of Entry Tech Review Status In Process Next Review Type Continued Stay Review
--- NOTE | 2022-10-28 10:57 | P.DS_ITS ---
History of Present Illness History of Present Illness Date Patient Seen: 10/28/22 Time Patient Seen: 10:58 Chief complaint: chest pain, now resolved Narrative: Godfrey Ferrell is a 72-year-old male with a history of HLD, HTN, mild pleasantly dementia, who presented to the ED after experiencing a sodium and episode of exertional chest pain and dyspnea while swimming in a [place]. Symptoms had resolved by the time the patient presented to the ED. Has no cardiac h istory or respiratory history, is at bedside to provide majority of medical history due to patient's dementia. On admit patient denies chest pain, shortness in breath, headache, changes in vision, difficulty swallowing, speech impairment, weakness, numbness, tingling, difficulty with ambulation, recent falls, head injury, LOC, fever, body aches, chills, cough, recent exposure to illness, abdominal pain, nausea, vomiting, urinary incontinence/retention, dysuria, frequency, urgency, hematuria, bowel changes, constipation, incontinence, melena, rashes, recent changes to medication, illness, injury, or trauma. Patient's vitals and labs are reassuring at the time of admit temp 97.1?, 123/8 1, 71, 18, 98% on room air. Patient's CBC and CMP are normal, potassium 4.2, Mag 1.9, initial troponin negative, repeat-0.018, chest x-ray is negative, EKG sinus rhythm with a rate of [address] or T-wave changes left bundle-branch block chronic for patient. Patient admitted for chest pain, risk stratification Discharge Providers Provider Date of admission: 10/27/22 21:58 Discharge Date: 10/28/22 Primary care physician: Jaciel Pope MD Consults: 10/27/22 21:35 Consult to Dietitian, Adult Routine Comment: Reason For Exam: BMI 23 10/27/22 21:36 Consult to Discharge Planning Routine Comment: Discharge provider: Collin Skinner DO Summary Hospital Course Discharge Diagnosis: Chest pain with exertional dyspnea, acute, present on admission Hypertension, chronic, present on admission Hyperlipidemia, mixed, chronic, present on admission Dementia, mild, chronic, present on admission Hospital Course: Godfrey Ferrell is a 72-year-old male with a history of HLD, HTN, mild dementia, who presented to the ED after experiencing an episode of exertional chest pain and dyspnea while swimming in a [place].?He was admitted for further risk stratification. His grandkids were visiting and leaving in the afternoon, and after risk / benefit discussion prior to treadmill EKG testing the patient wished to discharge home with medical management instead of waiting until the late afternoon for treadmill testing. He continued to be chest pain free, and troponins were negative and ACS was ruled out. Outpatient stress testing and echocardiogram were ordered and he was recommended to follow up with his primary care provider as soon as possible. I called and the next available treadmill test was next week and he was recommended to call immediately upon discharge to schedule. He is already on aspirin and statin therapy, no medical changes are recommended at the time of discharge. Time Spent with Patient Time spent: Greater than 30 minutes Exam Vital Signs (past 8 hours): - 10/28/22 07:00 10/28/22 08:25 Temperature 97.3 F L Pulse Rate 62 62 Respiratory Rate 17 Blood Pressure 140/90 140/90 Pulse Oximetry 98 Oxygen Flow Rate 0 Oxygen Delivery Method Room Air Oxygen Flow Rate 0 Narrative Exam Narrative: General: Patient is pleasantly demented very fit 72-year-old male a well- developed, well-nourished in no distress at this time. Chest: Normal AP diameter and contour without kyphoscoliosis, Equal chest rise without nasal flaring, retractions, tachypneic or labored breathing. Lungs: Auscultation of all lung cobb are clear without adventitious sounds, wheezes, rhonchi, or rales. Cardio: regular rate and rhythm without murmur, rubs, or gallops, no carotid bruit, no cardiac pulsations present. Musculoskeletal: Muscle strength and tone are equal, no deformity, crepitus, effusions, cyanosis, clubbing or edema present. Skin: Warm dry and intact without rashes, ulcerations or petechiae. Psych: Patient has a well-kept appearance, appropriate affect, mental status attitude are appropriate. Objective Labs 10/27/22 16:40 10/27/22 16:40 Labs: Laboratory Results - last 24 hr 10/27/22 10/27/22 10/27/22 16:40 16:40 16:40 WBC 9.8 RBC 5.07 Hgb 14.0 Hct 42.2 MCV 83.2 MCH 27.6 MCHC 33.2 RDW 14.5 Plt Count 272 Neut % (Auto) 55.8 Lymph % (Auto) 32.0 [place] % (Auto) 9.0 Eos % (Auto) 2.4 Baso % (Auto) 0.8 Neut # (Auto) 5500 Lymph # (Auto) 3100 [place] # (Auto) 900 Eos # (Auto) 200 Baso # (Auto) 100 PT 11.5 INR 1.0 APTT 32 Sodium 138 Potassium 4.2 Chloride 103 Carbon Dioxide 28 BUN 19 Creatinine 0.79 Estimated GFR > 60 BUN/Creatinine Ratio 24.1 H Glucose 92 Calcium 9.4 Magnesium 1.9 Total Bilirubin 0.5 AST 27 ALT 22 Alkaline Phosphatase 58 Total Creatine Kinase 167 Troponin I < 0.012 NT-Pro-B Natriuret Pep Total Protein 8.1 Albumin 4.6 Globulin 3.5 Albumin/Globulin Ratio 1.3 Triglycerides Cholesterol LDL Cholesterol, Calc HDL Cholesterol Lipase 302 H 10/27/22 10/27/22 10/28/22 19:49 19:49 04:59 WBC RBC Hgb Hct MCV MCH MCHC RDW Plt Count Neut % (Auto) Lymph % (Auto) [place] % (Auto) Eos % (Auto) Baso % (Auto) Neut # (Auto) Lymph # (Auto) [place] # (Auto) Eos # (Auto) Baso # (Auto) PT INR APTT Sodium Potassium Chloride Carbon Dioxide BUN Creatinine Estimated GFR BUN/Creatinine Ratio Glucose Calcium Magnesium Total Bilirubin AST ALT Alkaline Phosphatase Total Creatine Kinase 156 Troponin I 0.018 0.016 NT-Pro-B Natriuret Pep 184 H Total Protein Albumin Globulin Albumin/Globulin Ratio Triglycerides 52 Cholesterol 152 LDL Cholesterol, Calc 91 HDL Cholesterol 51 Lipase [facility] Medical History Cerebral microvascular disease Colon polyps (~2014) Headache (~2019) Hearing loss Hepatitis C (~1970) Hyperlipidemia Rib fractures Short-term memory loss Skin rash Surgical History Anesthesia History of bilateral knee arthroplasty History of colon surgery (~1960) History of knee replacement (~2005) Family History Father Leukemia History of heart disease Hypertension Mother Hypertension Stroke Dementia Brother Smoker Embolism Brother Cancer Brother Accident Grandmother Cancer Grandfather No problems noted. Grandmother Tuberculosis Social History household members: spouse Smoking Status: Never smoker Discharge Plan Discharge Plan Patient Disposition: Home Provider Discharge Comment: You were admitted to the hospital with chest pain. You elected for further evaluation with stress testing. This was ordered, and should be able to be performed next week. Please call diagnostic imaging to sche dule this test and an echocardiogram. Please try to make an appointment with Dr. Pope in the next week to review hospitalization. Discharge orders & Medications Prescriptions: Continued aspirin [Adult Aspirin Regimen] 81 mg tablet,delayed release (DR/EC) 81 mg PO DAILY memantine 5 mg tablet 5 mg PO QPM lisinopril-hydrochlorothiazide 10-12.5 mg tablet See Rx Instructions .ROUTE .COMPLEX Qty: 90 3RF Dose Instruction: TAKE 1 TABLET DAILY Rx Instructions: TAKE 1 TABLET DAILY atorvastatin 20 mg tablet See Rx Instructions .ROUTE .COMPLEX Qty: 90 3RF Dose Instruction: TAKE 1 TABLET AT BEDTIME. Rx Instructions: TAKE 1 TABLET AT BEDTIME. Follow up/Referrals: Jaciel Pope MD [Primary Care Provider] - 1 Week (Appt on , October at 8:30am with . [phone]) Other Ambulatory Orders: EC echo doppler complete (Routine) Facility: [facility] - Location: Radiology Ordered By: Collin Skinner Exercise treadmill NON NUC (Routine) Timeframe: 1 Week Facility: [facility] - Location: Radiology Ordered By: Collin Skinner Diet/Activity/Treatments Diet: Diet as Tolerated and Regular Activity: As tolerated Skin/Wound/Dressing Care Report to your healthcare provider any signs of infection, such as:: increased pain Visit Report/Discharge Packet Stand Alone Forms: Patient Portal/API, Stroke Signs & Symptoms Discharge Data Primary Care Provider: Jaciel Pope Attending Provider: Sade Roach Admit Date/Time: 10/27/22 21:58 Discharges patient from system. Discharge Date/Time: 10/28/22 11:40 Quality VTE Deep Vein Thrombosis/Pulmonary Embolism Present on Admission: No
== END 2022-10-28 11:40 | disposition home or self-care (01) ==
LOC: ED 21:00 → AC 21:58
PROVIDERS: Emergency Medicine; Admitting Provider Nurse Practitioner Family; Emergency Provider Emergency Medicine; PCP Family Medicine; Visit Provider Nurse Practitioner Family
DX: R07.9 Chest pain, unspecified (principal); E78.5 Hyperlipidemia, unspecified; I10 Essential (primary) hypertension; F03.90 Unspecified dementia, unspecified severity, without behavioral disturbance, psychotic disturbance, mood disturbance, and anxiety; R06.00 Dyspnea, unspecified; Z79.82 Long term (current) use of aspirin
CPT/HCPCS: 36415; 71045; 80053; 80061; 82550; 83690; 83735; 83880; 84484; 85025; 85610; 85730; 93005; 96372; 99284; G0378; J1650

== ENCOUNTER → 2022-11-03 06:51 | Outpatient (CLI) | payer MEDICARE, SELFPAY ==
[2022-10-27 23:08] VITALS: BMI 22.9
--- NOTE | 2022-11-03 06:52 | DI.ECHO.S_ITS ---
[facility] +---------+ : : [address] : : : : [id number] : : : : Phone: [phone]+ Echocardiogram Report + + :Name: ZACKERY COOK Study Date: 11/03/2022 Height: 64 in : :[facility] ReadingLocation: Weight: 140 lb : : Gender: Male BSA: 1.7 m2 : :: 1950 Age: 72 yrs BP: 145/87 mmHg: :Reason For Study: Chest Pain : :Ordering Physician: MY, : :EMMA Performed By: Mary Reynolds : :Referring: EMMA PEPE : + + Interpretation Summary The ejection fraction is estimated to be 50-55%. Distal septal and inferoapical hypokinesis Right ventricular systolic function is mildly reduced. No definite mitral valve prolapse The mitral valve leaflets appear mildly thickened, but open well. The right ventricular systolic pressure is estimated to be at least 25 mmHg based on an estimated right atrial pressure of 3 mm Hg. Procedure: A two-dimensional transthoracic echocardiogram with color flow and Doppler was performed. The study quality was technically adequate. There is no prior echocardiogram noted for this patient. The patient was in normal sinus rhythm during the exam. Left Ventricle: The left ventricle is normal in size. The ejection fraction is estimated to be 50-55%. Distal septal and inferoapical hypokinesis. Diastolic parameters suggest a relaxation abnormality of the left ventricle, consistent with probable normal filling pressures. Right Ventricle: The right ventricle is normal size. Right ventricular systolic function is mildly reduced. Atria: The left atrial size is normal. Right atrial size is normal. There is no Doppler evidence for an interatrial shunt. Mitral Valve: The mitral valve leaflets appear mildly thickened, but open well. No definite mitral valve prolapse. There is no mitral valve stenosis. There is trace mitral regurgitation. Aortic Valve: The aortic valve is trileaflet. The aortic valve opens well. There is no aortic valve stenosis. No aortic regurgitation is present. Tricuspid Valve: The tricuspid valve leaflets are thin and pliable. There is no tricuspid stenosis. There is trace tricuspid regurgitation. The right ventricular systolic pressure is estimated to be at least 25 mmHg based on an estimated right atrial pressure of 3 mm Hg. Pulmonic Valve: The pulmonic valve leaflets are thin and pliable; valve motion is normal. There is no pulmonic valvular stenosis. There is trace pulmonic regurgitation. Great Vessels: The aortic root is normal size. The ascending aorta is normal in size. The pulmonary artery is normal size. The IVC is of normal diameter and collapses greater than 50% with a sniff. This suggests a low right atrial pressure of 3 mm Hg. Pericardium/ Pleura There is no pericardial effusion. There is no pleural effusion. MMode/2D Measurements & Calculations LVIDd: 4.4 cm LVOT diam: 1.8 cm LVIDs: 3.4 cm Ao root diam: 3.2 cm FS: 22.7 % asc Aorta Diam: 3.4 cm EPSS: 0.50 cm IVSd: 1.3 cm LVPWd: 1.4 cm LV crystal. diameter/BSA (cm/m^2): 2.6 LV sys. diameter/BSA (cm/m^2): 2.0 LA A2 area: 20.2 cm2 RA long axis: 4.8 cm LA A4 area: 13.9 cm2 RA area: 11.9 cm2 LA length (vol): 5.8 cm RA vol: 25.0 ml LA vol: 41.4 ml RA : 14.9 ml/m2 LA vol index: 24.7 ml/m2 RVD1 (basal): 3.5 cm LVLs ap4: 6.2 cm LVLd ap2: 6.8 cm TAPSE_phl: 1.5 cm LVLs ap2: 5.8 cm Doppler Measurements & Calculations Ao V2 max: 131.0 cm/sec LVOT Max Ferdinand: 114.0 cm/sec Ao V2 mean: 90.4 cm/sec LV V1 max P.2 mmHg Ao max P.0 mmHg LV V1 VTI: 23.3 cm Ao mean P.0 mmHg JUDITH(I,D): 2.0 cm2 Ao V2 VTI: 29.5 cm JUDITH(V,D): 2.2 cm2 sev ratio: 0.79 JUDITH indexed to BSA (cm^2/m^2): 1.2 MV E max ferdinand: 105.0 cm/sec TR max ferdinand: 237.0 cm/sec MV A max ferdinand: 94.7 cm/sec TR max P.5 mmHg MV E/A: 1.1 PA V2 max: 58.7 cm/sec Med Peak E' Ferdinand: 6.1 cm/sec PA V2 mean: 43.5 cm/sec E/E' med: 17.2 PA mean P.0 mmHg Lat Peak E' Ferdinand: 9.4 cm/sec PA pr(Accel): 31.3 mmHg E/E' lat: 11.2 E/e' average: 14.2 MV dec time: 0.20 sec SV(LVOT): 59.3 ml AV VR_phl: 0.87 JUDITH(VTI)/BSA_phl: 1.2 MV P1/2t-pr_phl: 60.0 msec Reading Physician:10:03 AM
== END ==
PROVIDERS: PCP Family Medicine; Referring Provider Family Medicine; Visit Provider Family Medicine
DX: R07.9 Chest pain, unspecified (principal); I10 Essential (primary) hypertension; E78.5 Hyperlipidemia, unspecified
CPT/HCPCS: 93306

== ENCOUNTER → 2022-11-10 09:20 | Outpatient (CLI) | payer MEDICARE, SELFPAY ==
[2022-10-27 23:08] VITALS: BMI 22.9
--- NOTE | 2022-11-10 09:21 | DI.NM.S_ITS ---
PROCEDURE: NM CHUYITA PERF SPECT R&S PHARM Rest and pharmacological stress myocardial perfusion SPECT with gated imaging and ejection fraction RADIOPHARMACEUTICAL: 11.7 mCi Tc-99m tetrafosmin IV at rest and 27.5 mCi Tc-99m tetrafosmin IV at peak effect of pharmacological stress. [id number] was performed. INDICATIONS: LBBB, chest pain TECHNIQUE: Radiopharmaceutical was injected at peak stress test, and also at rest. SPECT images were obtained. SPECT myocardial perfusion images were displayed in short axis, horizontal long axis, and vertical long axis views. Gated images were reviewed using [employer] software. COMPARISON: None. CARDIAC STRESS: A pharmacologic stress test was performed under the supervision of an attending staff, using an infusion of lexiscan 0.4mg IV X1. Hemodynamic data: There is normal blood pressure and heart rate response to pharmacologic stress. Symptoms: The patient denied anginal chest pain. Aminophylline: none EKG: ECG showed sinus rhythm with LBBB at rest. Non-diagnostic ST with lexiscan; occasional PACs. FINDINGS: Raw data: There is good myocardial uptake of radiotracer. No significant motion artifacts. Wqfo-rx-iuyks ratio is 0.33 (normal is less than 0.38 for tetrafosmin tracer). Left ventricle function: Gated images demonstrate normal left ventricular wall thickening. No segmental wall motion abnormalities. No transient ischemic dilation; TID is 0.96 (normal less than 1.3). Left ventricle resting end diastolic volume is 118 mL. Left ventricle stress ejection fraction is 67%; normal range is above 45%. Myocardial perfusion: There is a moderately intense fixed distal septal and apical defect that improves significantly with prone imaging, suggesting artifact (possibly from LBBB) but old non-transmural infarction can't be excluded. No ischemia. IMPRESSION: Low risk, probably normal pharmaceutical nuclear stress test from inducible ischemia standpoint. 1) There is a moderately intense fixed distal septal and apical defect that improves significantly with prone imaging, suggesting artifact (possibly from LBBB) but old non-transmural infarction can't be excluded. No ischemia. 2) Normal left ventricular size, wall motion, and systolic function (EF post stress 67%). 3) ECG non-diagnostic due to baseline LBBB. 4) No angina during the study. 5) No prior nuclear stress test available for comparison. Dictated by: Randy Valiente MD on 11/11/2022 at 13:08 Approved by: Randy Valiente MD on 11/11/2022 at 13:12
== END ==
PROVIDERS: PCP Family Medicine; Referring Provider Family Medicine; Visit Provider Family Medicine
DX: R07.89 Other chest pain (principal)
CPT/HCPCS: 78452; 93017; A9502; J2785

== ENCOUNTER → 2022-12-05 10:11 | Outpatient (CLI) | payer MEDICARE, SELFPAY ==
[2022-10-27 23:08] VITALS: BMI 22.9
[2022-12-05 11:11] LABS: Alanine Aminotransferase 20 IU/L (<50); Albumin 4.5 g/dL (3.5-5.0); Albumin Globulin Ratio 1.6 (1.0-2.8); Alkaline Phosphatase 51 U/L (38-126); Aspartate Aminotransferase 28 IU/L (17-59); Bilirubin Total 0.8 mg/dL (0.2-1.3); Bilirubin Unconjugated 0.7 mg/dL (0.0-1.1); Globulin 2.9 g/dL (1.7-4.1); HEMOLYSIS < 15 (0-50); Total Protein 7.4 g/dL (6.3-8.2)
[2022-12-19 10:05] LABS: Fibrosis Score 0.69
[2022-12-19 10:08] LABS: Necroinflammat Act Score 0.11
[2022-12-19 10:18] LABS: Alpha 2-Macroglobulins, QN 373
[2022-12-19 10:22] LABS: Haptoglobin 109
[2022-12-19 11:20] LABS: Apolipoprotein A-1 128; Bilirubin,Total 0.7
[2022-12-19 11:21] LABS: ALT (SGPT) 17; GGT 14
== END ==
PROVIDERS: PCP Family Medicine; Referring Provider Nurse Practitioner Family; Visit Provider Nurse Practitioner Family
DX: B18.2 Chronic viral hepatitis C (principal); K74.60 Unspecified cirrhosis of liver
CPT/HCPCS: 36415; 80076; 81596; 82105

== ENCOUNTER → 2023-03-06 | Outpatient (CLI) | payer MEDICARE, SELFPAY ==
[2022-10-27 23:08] VITALS: BMI 22.9
== END ==
LOC: CAR 15:05
PROVIDERS: PCP Family Medicine; Referring Provider Family Medicine; Visit Provider Family Medicine
DX: R55 Syncope and collapse (principal)

== ENCOUNTER → 2023-05-02 07:47 | Outpatient (CLI) | payer OTHER, SELFPAY ==
[2022-10-27 23:08] VITALS: BMI 22.9
--- NOTE | 2023-05-02 07:48 | DI.US.S_ITS ---
PROCEDURE: US ABDOMEN LIMITED INDICATIONS: Chronic viral hepatitis C TECHNIQUE: Real-time focused scanning was performed of the abdomen, with image documentation. COMPARISON: [facility], , US ABDOMEN LIMITED, 05/04/2022, 11:38. FINDINGS: Mild hepatic parenchymal hyperechogenicity. The right lobe is normal size at 12.5 cm in length. Liver margin is smooth. In the posterior right lobe, there is a slightly heterogeneous, echogenic solid mass measuring 1.6 x 1.2 x 1.8 cm, previously 1.2 x 1.8 x 2.0 cm. No significant internal or peripheral vascularity. The margins are less well defined compared to prior exams. No other liver lesions. No perihepatic ascites visible. IMPRESSION: 1. Mild hepatic hyperechogenicity, similar compared to prior exams. This can be seen in steatosis or other intrinsic liver disease. 2. Stable to slightly smaller hyperechoic liver lesion most suggestive of a hepatic hemangioma, less likely hepatocellular carcinoma. Correlate with any treatment given. Dictated by: Venessa Blanco M.D. on 05/02/2023 at 12:00 Approved by: Venessa Blanco M.D. on 05/02/2023 at 12:04
== END ==
PROVIDERS: PCP Family Medicine; Referring Provider Nurse Practitioner Family; Visit Provider Nurse Practitioner Family
DX: B18.2 Chronic viral hepatitis C (principal); K74.00 Hepatic fibrosis, unspecified; K76.9 Liver disease, unspecified
CPT/HCPCS: 76705

== ENCOUNTER → 2023-06-24 08:38 | Outpatient (CLI) | payer OTHER, SELFPAY ==
[2022-10-27 23:08] VITALS: BMI 22.9
[2023-06-24 09:52] LABS: Add Manual Diff / Slide Review NO; Basophils Absolute Auto 100 /uL (0-100); Basophils Percent Auto 0.7 % (0-2); Eosinophils Absolute Auto 200 /uL (0-450); Eosinophils Percent Auto 3.4 % (2-4); Hematocrit 36.8 % (41-53); Hemoglobin 11.8 g/dL (13.5-17.5); Lymphocytes Absolute Auto 2200 /uL (1100-4500); Lymphocytes Percent Auto 30.9 % (25-40); Mean Corpuscular HGB Conc 32.2 % (30-36); Mean Corpuscular Hemoglobin 24.7 PG (26-34); Mean Corpuscular Volume 76.6 fL (80-100); Monocytes Absolute Auto 700 /uL (0-900); Monocytes Percent Auto 10.1 % (3-14); Neutrophils Absolute Auto 3900 /uL (1500-7000); Neutrophils Percent Auto 54.9 % (50-75); Platelet Count 275 X10^3/uL (150-400); Red Cell Distribution Width 16.9 % (11.6-14.8); White Blood Cell Count 7.1 X10^3/uL (4.5-11.0)
[2023-06-24 10:51] LABS: Prothrombin Time 11.7 SECONDS (9.4-12.5)
[2023-06-24 10:54] LABS: Alanine Aminotransferase 17 IU/L (<50); Albumin 4.3 g/dL (3.5-5.0); Albumin Globulin Ratio 1.5 (1.0-2.8); Alkaline Phosphatase 47 U/L (38-126); Aspartate Aminotransferase 23 IU/L (17-59); BUN Creatinine Ratio 25.6 (6-22); Bilirubin Total 0.7 mg/dL (0.2-1.3); Blood Urea Nitrogen 21 mg/dL (9-20); Calcium 9.5 mg/dL (8.4-10.2); Carbon Dioxide 24 mmol/L (22-32); Chloride 108 mmol/L (98-107); Estimated Glomerular Filt Rate > 60 mL/min (>60); Globulin 2.8 g/dL (1.7-4.1); Glucose 91 mg/dL (80-110); HEMOLYSIS < 15 (0-50); Potassium 4.5 mmol/L (3.4-5.1); Sodium 140 mmol/L (137-145); Total Protein 7.1 g/dL (6.3-8.2)
[2023-06-24 10:56] LABS: Cholesterol 134 mg/dL (140-199); HDL Cholesterol 54 mg/dL (40-60); LDL Cholesterol Calculated 68 mg/dL (<100); Triglycerides 62 mg/dL (35-150)
[2023-06-24 11:25] LABS: Prostate Specific Antigen Scrn 1.48 ng/mL (0.1-4.0)
[2023-06-24 12:00] LABS: Folate 8.8 ng/mL (2.76-20.0); Vitamin B12 976 pg/mL (239-931)
[2023-06-26 08:15] LABS: Apolipoprotein B 66 mg/dL (<90)
[2023-06-26 22:36] LABS: Alpha Fetoprotein 2.9 ng/mL (0.0-8.4)
== END ==
PROVIDERS: Nurse Practitioner Family; PCP Family Medicine; Referring Provider Psychiatry & Neurology Neurology; Visit Provider Psychiatry & Neurology Neurology
DX: E78.2 Mixed hyperlipidemia (principal); Z12.5 Encounter for screening for malignant neoplasm of prostate; E53.8 Deficiency of other specified B group vitamins; K74.00 Hepatic fibrosis, unspecified; I10 Essential (primary) hypertension
CPT/HCPCS: 36415; 80053; 80061; 82105; 82172; 82607; 82746; 85025; 85610; G0103

== ENCOUNTER → 2023-07-20 08:06 | Outpatient (CLI) | payer MEDICARE, SELFPAY ==
[2022-10-27 23:08] VITALS: BMI 22.9
[2023-07-20 09:11] LABS: HEMOLYSIS < 15 (0-50); Iron 49 ug/dL (49-181)
[2023-07-20 09:23] LABS: Percent Iron Saturation 13 % (20-50); Total Iron Binding Capacity 375 ug/dL (261-462); Transferrin 300 mg/dL (206-381)
[2023-07-20 09:45] LABS: Ferritin 9 ng/mL (18-464)
== END ==
PROVIDERS: PCP Family Medicine; Referring Provider Internal Medicine Gastroenterology; Visit Provider Internal Medicine Gastroenterology
DX: N18.2 Chronic kidney disease, stage 2 (mild) (principal); K74.00 Hepatic fibrosis, unspecified; B18.2 Chronic viral hepatitis C
CPT/HCPCS: 36415; 82728; 83540; 83550

== ENCOUNTER → 2023-10-26 15:44 | Outpatient (CLI) | payer MEDICARE, SELFPAY ==
[2022-10-27 23:08] VITALS: BMI 22.9
[2023-10-26 17:09] LABS: Add Manual Diff / Slide Review NO; Basophils Absolute Auto 0 /uL (0-100); Basophils Percent Auto 0.4 % (0-2); Eosinophils Absolute Auto 100 /uL (0-450); Eosinophils Percent Auto 1.6 % (2-4); Hematocrit 41.7 % (41-53); Hemoglobin 13.5 g/dL (13.5-17.5); Lymphocytes Absolute Auto 2700 /uL (1100-4500); Lymphocytes Percent Auto 32.2 % (25-40); Mean Corpuscular HGB Conc 32.4 % (30-36); Mean Corpuscular Hemoglobin 27.1 PG (26-34); Mean Corpuscular Volume 83.5 fL (80-100); Monocytes Absolute Auto 600 /uL (0-900); Neutrophils Absolute Auto 4900 /uL (1500-7000); Neutrophils Percent Auto 58.8 % (50-75); Platelet Count 252 X10^3/uL (150-400); Red Blood Cell Count 4.99 X10^6/uL (4.5-5.9); White Blood Cell Count 8.3 X10^3/uL (4.5-11.0)
[2023-10-26 17:24] LABS: Iron 89 ug/dL (49-181)
[2023-10-26 17:34] LABS: Total Iron Binding Capacity 333 ug/dL (261-462)
[2023-10-26 18:04] LABS: Ferritin 12 ng/mL (18-464)
== END ==
PROVIDERS: PCP Family Medicine; Referring Provider Physician Assistant; Visit Provider Physician Assistant
DX: D50.9 Iron deficiency anemia, unspecified (principal)
CPT/HCPCS: 36415; 82728; 83540; 83550; 85025

== ENCOUNTER → 2024-01-17 10:51 | Outpatient (CLI) | payer MEDICARE, SELFPAY ==
[2022-10-27 23:08] VITALS: BMI 22.9
--- NOTE | 2024-01-17 10:56 | DI.US.S_ITS ---
PROCEDURE: US ABDOMEN LIMITED INDICATIONS: BRIDGING FIBROSIS/IRON DEFICIENCY ANEMIA. HCC SCREENING. TECHNIQUE: Real-time focused scanning was performed of the abdomen, with image documentation. COMPARISON: [facility], [place], US ABDOMEN LIMITED, 05/02/2023, 7:53. FINDINGS: Liver measures 12.0 cm. Hyperechoic focus without increased vascularity in the right lower lobe measures 10 x 11 x 15 mm compared to 16 x 18 x 12 mm. Gallbladder demonstrates non mobile echogenic focus measuring 2 x 4 x 2 mm possibly polyps. Wall thickness is normal. Common bile duct measures 3.7 mm without intra or extrahepatic biliary dilation. IMPRESSION: Previously identified hyperechoic focus possibly hemangioma has decreased in size. Dictated by: Tessy Hidalgo M.D. on 01/17/2024 at 16:49 Approved by: Tessy Hidalgo M.D. on 01/17/2024 at 16:50
== END ==
PROVIDERS: PCP Family Medicine; Referring Provider Physician Assistant; Visit Provider Physician Assistant
DX: K74.00 Hepatic fibrosis, unspecified (principal); D50.9 Iron deficiency anemia, unspecified; Z86.0100 Personal history of colon polyps, unspecified
CPT/HCPCS: 76705

== ENCOUNTER → 2024-01-24 16:28 | Outpatient (CLI) | payer MEDICARE, SELFPAY ==
[2022-10-27 23:08] VITALS: BMI 22.9
[2024-01-24 18:31] LABS: Prothrombin Time 11.1 SECONDS (9.4-12.5)
[2024-01-24 18:44] LABS: Iron 91 ug/dL (49-181)
[2024-01-24 18:49] LABS: Alanine Aminotransferase 16 IU/L (<50); Albumin 4.4 g/dL (3.5-5.0); Albumin Globulin Ratio 1.6 (1.0-2.8); Alkaline Phosphatase 63 U/L (38-126); Aspartate Aminotransferase 62 IU/L (17-59); Bilirubin Total 0.5 mg/dL (0.2-1.3); Blood Urea Nitrogen 16 mg/dL (9-20); Calcium 9.2 mg/dL (8.4-10.2); Carbon Dioxide 24 mmol/L (22-32); Chloride 106 mmol/L (98-107); Estimated Glomerular Filt Rate > 60 mL/min (>60); Globulin 2.8 g/dL (1.7-4.1); Glucose 98 mg/dL (80-110); HEMOLYSIS 26 (0-50); Potassium 4.5 mmol/L (3.4-5.1); Sodium 138 mmol/L (137-145); Total Protein 7.2 g/dL (6.3-8.2)
[2024-01-24 18:52] LABS: Add Manual Diff / Slide Review NO; Basophils Absolute Auto 0 /uL (0-100); Basophils Percent Auto 0.5 % (0-2); Eosinophils Absolute Auto 200 /uL (0-450); Eosinophils Percent Auto 1.7 % (2-4); Hematocrit 42.9 % (41-53); Hemoglobin 14.1 g/dL (13.5-17.5); Lymphocytes Absolute Auto 2600 /uL (1100-4500); Lymphocytes Percent Auto 28.8 % (25-40); Mean Corpuscular HGB Conc 32.9 % (30-36); Mean Corpuscular Hemoglobin 28.4 PG (26-34); Mean Corpuscular Volume 86.2 fL (80-100); Monocytes Absolute Auto 800 /uL (0-900); Monocytes Percent Auto 8.2 % (3-14); Neutrophils Absolute Auto 5600 /uL (1500-7000); Neutrophils Percent Auto 60.8 % (50-75); Platelet Count 274 X10^3/uL (150-400); Red Blood Cell Count 4.97 X10^6/uL (4.5-5.9); White Blood Cell Count 9.2 X10^3/uL (4.5-11.0)
[2024-01-24 18:54] LABS: Total Iron Binding Capacity 347 ug/dL (261-462)
[2024-01-24 19:23] LABS: Ferritin 13 ng/mL (18-464)
[2024-01-26 07:11] LABS: Alpha Fetoprotein 4.5 ng/mL (0.0-8.4)
== END ==
PROVIDERS: PCP Family Medicine; Referring Provider Internal Medicine Gastroenterology; Visit Provider Internal Medicine Gastroenterology
DX: B18.2 Chronic viral hepatitis C (principal); D50.9 Iron deficiency anemia, unspecified; Z80.0 Family history of malignant neoplasm of digestive organs
CPT/HCPCS: 36415; 80053; 82105; 82728; 83540; 83550; 85025; 85610

== ENCOUNTER → 2024-04-12 | Outpatient (CLI) | payer MEDICARE, SELFPAY ==
[2024-04-09 10:33] VITALS: BMI 22.9
--- NOTE | 2024-04-12 11:50 | DI.RAD.S_ITS ---
PROCEDURE: XR LUMBAR SPINE 2-3V INDICATIONS: low back pain TECHNIQUE: 3 views of the lumbar spine were acquired. COMPARISON: None. FINDINGS: Bones: Generalized decreased osseous mineralization noted. Diffuse disc space narrowing hypertrophic facet joints noted throughout the exam. Grade 1 spondylolisthesis noted at C2-3 and C4-5. Anterior height loss present T12, chronic appearing. Soft tissues: Overlying bowel gas pattern is normal. No suspicious soft tissue calcifications. 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 A T12 compression fracture, uncertain age but probably old Approved by: Lebron Puente M.D. on 04/12/2024 at 19:06
== END ==
LOC: RAD 11:50
PROVIDERS: PCP Family Medicine; Referring Provider Family Medicine; Visit Provider Family Medicine
DX: M51.360 Other intervertebral disc degeneration, lumbar region with discogenic back pain only (principal); M47.816 Spondylosis without myelopathy or radiculopathy, lumbar region; M48.54XA Collapsed vertebra, not elsewhere classified, thoracic region, initial encounter for fracture; G89.29 Other chronic pain
CPT/HCPCS: 72100

== ENCOUNTER → 2024-08-02 12:12 | Outpatient (CLI) | payer MEDICARE, SELFPAY ==
[2024-04-09 10:33] VITALS: BMI 22.9
[2024-08-02 13:11] LABS: Add Manual Diff / Slide Review NO; Basophils Absolute Auto 0 /uL (0-100); Basophils Percent Auto 0.4 % (0-2); Eosinophils Absolute Auto 100 /uL (0-450); Eosinophils Percent Auto 1.5 % (2-4); Hematocrit 44.9 % (41-53); Hemoglobin 15.1 g/dL (13.5-17.5); Lymphocytes Absolute Auto 2700 /uL (1100-4500); Mean Corpuscular HGB Conc 33.6 % (30-36); Mean Corpuscular Hemoglobin 29.8 PG (26-34); Mean Corpuscular Volume 88.6 fL (80-100); Monocytes Absolute Auto 900 /uL (0-900); Monocytes Percent Auto 9.1 % (3-14); Neutrophils Absolute Auto 6200 /uL (1500-7000); Platelet Count 290 X10^3/uL (150-400); Red Blood Cell Count 5.07 X10^6/uL (4.5-5.9); Red Cell Distribution Width 14.2 % (11.6-14.8); White Blood Cell Count 9.9 X10^3/uL (4.5-11.0)
[2024-08-02 13:13] LABS: Add Manual Diff / Slide Review NO; Basophils Absolute Auto 0 /uL (0-100); Basophils Percent Auto 0.4 % (0-2); Eosinophils Absolute Auto 200 /uL (0-450); Eosinophils Percent Auto 1.5 % (2-4); Hematocrit 44.8 % (41-53); Hemoglobin 14.9 g/dL (13.5-17.5); Lymphocytes Absolute Auto 2800 /uL (1100-4500); Lymphocytes Percent Auto 27.7 % (25-40); Mean Corpuscular HGB Conc 33.3 % (30-36); Mean Corpuscular Hemoglobin 29.7 PG (26-34); Mean Corpuscular Volume 89.3 fL (80-100); Monocytes Absolute Auto 1000 /uL (0-900); Monocytes Percent Auto 9.7 % (3-14); Neutrophils Absolute Auto 6100 /uL (1500-7000); Neutrophils Percent Auto 60.7 % (50-75); Platelet Count 299 X10^3/uL (150-400); Red Blood Cell Count 5.02 X10^6/uL (4.5-5.9); Red Cell Distribution Width 14.4 % (11.6-14.8)
[2024-08-02 13:24] LABS: INR 1.1 (0.9-1.3); Prothrombin Time 12.5 SECONDS (9.4-12.5)
[2024-08-02 13:38] LABS: HEMOLYSIS < 15 (0-50); Iron 79 ug/dL (49-181)
[2024-08-02 13:40] LABS: Alanine Aminotransferase 22 IU/L (<50); Albumin 4.5 g/dL (3.5-5.0); Albumin Globulin Ratio 1.7 (1.0-2.8); Alkaline Phosphatase 63 U/L (38-126); Aspartate Aminotransferase 29 IU/L (17-59); BUN Creatinine Ratio 16.3 (6-22); Bilirubin Total 0.5 mg/dL (0.2-1.3); Blood Urea Nitrogen 13 mg/dL (9-20); Calcium 9.5 mg/dL (8.4-10.2); Carbon Dioxide 24 mmol/L (22-32); Chloride 104 mmol/L (98-107); Cholesterol 146 mg/dL (140-199); Estimated Glomerular Filt Rate > 60 mL/min (>60); Globulin 2.6 g/dL (1.7-4.1); Glucose 91 mg/dL (80-110); HDL Cholesterol 50 mg/dL (40-60); HEMOLYSIS < 15 (0-50); LDL Cholesterol Calculated 77 mg/dL (<100); Potassium 4.6 mmol/L (3.4-5.1); Sodium 138 mmol/L (137-145); Total Protein 7.1 g/dL (6.3-8.2); Triglycerides 95 mg/dL (35-150)
[2024-08-02 13:50] LABS: Percent Iron Saturation 26 % (20-50); Total Iron Binding Capacity 301 ug/dL (261-462); Transferrin 236 mg/dL (206-381)
[2024-08-02 14:11] LABS: Prostate Specific Antigen Scrn 1.07 ng/mL (0.1-4.0); TSH w/ Reflex to FT4 3.05 uIU/mL (0.47-4.68)
[2024-08-02 14:14] LABS: Ferritin 22 ng/mL (18-464)
[2024-08-02 14:52] LABS: Creatinine Urine Random 68.77 mg/dL
[2024-08-02 14:58] LABS: Microalbumin Urine Random 1.2 mg/dL (0-1.6)
[2024-08-03 03:10] LABS: Apolipoprotein B 72 mg/dL (<90)
[2024-08-03 06:41] LABS: Alpha Fetoprotein 2.3 ng/mL (0.0-8.4)
== END ==
PROVIDERS: Psychiatry & Neurology Neurology; PCP Family Medicine; Referring Provider Physician Assistant; Visit Provider Physician Assistant
DX: K74.60 Unspecified cirrhosis of liver (principal); E78.5 Hyperlipidemia, unspecified; Z12.5 Encounter for screening for malignant neoplasm of prostate; Z12.89 Encounter for screening for malignant neoplasm of other sites; B18.2 Chronic viral hepatitis C; Z80.0 Family history of malignant neoplasm of digestive organs; D50.9 Iron deficiency anemia, unspecified; I67.89 Other cerebrovascular disease
CPT/HCPCS: 36415; 80053; 80061; 82043; 82105; 82172; 82570; 82728; 83540; 83550; 84443; 85025; 85610; G0103

== ENCOUNTER → 2024-08-13 13:56 | Outpatient (CLI) | payer MEDICARE, SELFPAY ==
[2024-04-09 10:33] VITALS: BMI 22.9
--- NOTE | 2024-08-13 14:01 | DI.RAD.S_ITS ---
PROCEDURE: XR DEXA AXIAL SKELETON INDICATIONS: bone demineralization COMPARISON: None. FINDINGS: Lumbar Spine: Bone mineral density 1.103 g/cm2, T score 0.5 Fracture Risk Calculation (when applicable): Not calculated (T score greater or equal to -1.0 to: NORMAL) (T score from -1.1 to -2.4: OSTEOPENIA) (T score less than or equal to -2.5: OSTEOPOROSIS) IMPRESSION: Normal bone density of the lumbar spine. Follow-up guidelines as follows: Osteoporosis: Consider a repeat DEXA and Vertebral Fracture Assessment (VFA) exam in 2 years or sooner if medically necessary, to reassess this patient's status. Osteopenia: Consider a repeat DEXA in 2-3 years to reassess this patient's status, or if there is a new clinical indication. Normal: Consider a repeat DEXA in 5 years or sooner, or if there is a new clinical indication. All treatment decisions require clinical judgment and consideration of individual patient factors, including patient preferences, comorbidities, previous drug use, risk factors not captured in the FRAX model (e.g., frailty, falls, vitamin D deficiency, increased bone turnover, interval significant decline in bone density ) and possible under- or over-estimation of fracture risk by FRAX. In addition, the NOF Guide recommends that FDA-approved medical therapies be considered in postmenopausal women and men age >= 50 years with a: * Hip or vertebral (clinical or morphometric) fracture * T-score of <=-2.5 at the spine or hip * Ten-year fracture probability by FRAX of >= 3% for hip fracture or >=20% for major osteoporotic fracture. Dictated by: Long Moreno M.D. on 08/13/2024 at 16:33 Approved by: Long Moreno M.D. on 08/13/2024 at 16:34
== END ==
LOC: RAD 14:00
PROVIDERS: PCP Family Medicine; Referring Provider Family Medicine; Visit Provider Family Medicine
DX: M85.89 Other specified disorders of bone density and structure, multiple sites (principal)
CPT/HCPCS: 77080

== ENCOUNTER → 2024-08-29 08:36 | Outpatient (CLI) | payer MEDICARE, SELFPAY ==
[2024-04-09 10:33] VITALS: BMI 22.9
--- NOTE | 2024-08-29 08:37 | DI.US.S_ITS ---
PROCEDURE: US ABDOMEN LIMITED INDICATIONS: Hcc screening TECHNIQUE: Real-time scanning was performed of the liver, with image documentation. COMPARISON: [facility], , US ABDOMEN LIMITED, 05/02/2023, 7:53. [facility], [place], US ABDOMEN LIMITED, 01/17/2024, 11:02. FINDINGS: Liver: Mildly increased echogenicity diffusely. The liver measures 14.5 cm in vertical diameter. Hyperechoic lesion in the right lobe posteriorly that measures 1.2 x 1.1 x 1.1 cm. No other focal lesions seen. There is hepatopetal flow in the main portal vein. IMPRESSION: Decreased size of the lesion in the right hepatic lobe, probably hemangioma. No new focal lesion seen. Dictated by: Mundo Sullivan M.D. on 08/29/2024 at 17:50 Approved by: Mundo Sullivan M.D. on 08/29/2024 at 17:52
== END ==
PROVIDERS: PCP Family Medicine; Referring Provider Physician Assistant; Visit Provider Physician Assistant
DX: Z12.89 Encounter for screening for malignant neoplasm of other sites (principal)
CPT/HCPCS: 76705

== ENCOUNTER → 2024-09-24 16:51 | Outpatient (CLI) | payer MEDICARE, SELFPAY ==
[2024-04-09 10:33] VITALS: BMI 22.9
--- NOTE | 2024-09-24 16:56 | DI.RAD.S_ITS ---
PROCEDURE: XR HAND LT MIN 3V INDICATIONS: fell yesterday- pain to 4th metatarsal/finger TECHNIQUE: 4 views of the hand(s) acquired. COMPARISON: None. FINDINGS: Bones: No fractures or dislocations. Possible osseous erosions at the ulnar styloid and triquetrum. Subtle lucencies at the scaphoid bone and distal radius. Carpal bones are normally aligned. No suspicious bony lesions. Mild joint space narrowing and osteophytosis. Soft tissues: Soft tissue calcification adjacent to the 3rd metacarpal head. Additional calcification near the radial styloid. These findings could represent chondrocalcinosis. Arterial vascular calcifications. IMPRESSION: No acute fracture is identified. Concern for osseous erosions at the ulnar styloid and triquetrum. Additional lucencies at the scaphoid bone and distal radius. Findings could be the sequelae of an inflammatory type arthropathy. Soft tissue calcification near the 3rd metacarpal head and DRUJ. This could represent chondrocalcinosis. Dictated by: Erick Menezes M.D. on 09/24/2024 at 17:15 Approved by: Erick Menezes M.D. on 09/24/2024 at 17:21
== END ==
PROVIDERS: PCP Family Medicine; Referring Provider Physician Assistant; Visit Provider Physician Assistant
DX: S69.90XA Unspecified injury of unspecified wrist, hand and finger(s), initial encounter (principal); X58.XXXA Exposure to other specified factors, initial encounter; I70.90 Unspecified atherosclerosis
CPT/HCPCS: 73130

== ENCOUNTER → 2025-03-27 07:53 | Outpatient (CLI) | payer MEDICARE, SELFPAY ==
[2024-04-09 10:33] VITALS: BMI 22.9
--- NOTE | 2025-03-27 07:55 | DI.US.S_ITS ---
PROCEDURE: US ABDOMEN LIMITED INDICATIONS: Chronic viral hepatitis C TECHNIQUE: Real-time scanning was performed of the abdominal and retroperitoneal organs, with image documentation. COMPARISON: [facility], [place], US ABDOMEN LIMITED, 08/29/2024, 8:51. [facility], [place], US ABDOMEN LIMITED, 01/17/2024, 11:02. FINDINGS: Liver: Liver is normal in size and homogeneous in echotexture. Gallbladder: No gallstones. No wall thickening. No pericholecystic edema. Negative sonographic Kitchen's sign. Biliary ducts: Intrahepatic bile ducts are non-dilated. Extrahepatic bile duct caliber measures 2.8 mm. Normal is 6-7 mm or less in diameter, or 10 mm or less post-cholecystectomy. Pancreas: Visualized portions of the pancreas are sonographically normal. Miscellaneous: No free abdominal fluid. Incidental note made of a right renal cyst measuring up to 3.1 cm, simple in character. IMPRESSION: No hepatic abnormality seen, incidental note of a 3.1 cm maximal dimension right renal simple appearing cortical cyst. Dictated by: Nathaniel Ramachandran M.D. on 03/27/2025 at 9:41 Approved by: Nathaniel Ramachandran M.D. on 03/27/2025 at 9:42
== END ==
LOC: US 07:54
PROVIDERS: PCP Family Medicine; Referring Provider Family Medicine; Visit Provider Physician Assistant
DX: B18.2 Chronic viral hepatitis C (principal); N28.1 Cyst of kidney, acquired
CPT/HCPCS: 76705